=== PATIENT | male | born 1945 | race Caucasian/White ===

== ENCOUNTER 2018-08-18 02:50 | Inpatient (IN) | payer MEDICARE, BC ==
[~2018-08-18] VITALS: Ht 170.2 cm; Wt 80.4 kg
[2018-08-18] MEDS ORDERED: METHYL SALICYLATE/MENTHOL TOPICAL OINTMENT 29GM TUBE. TP PRN (03:00)
[2018-08-18] MEDS ORDERED: MAGNESIUM HYDROXIDE 2,400 MG/30 ML ORAL.SUSP. PO PRN (03:00)
[2018-08-18] MEDS ORDERED: MAG HYDROX/AL HYDROX/SIMETH 30 ML ORAL.SUSP PO PRN (03:00)
[2018-08-18] MEDS ORDERED: UBID100C26 PO (03:14)
[2018-08-18] MEDS ORDERED: SERT25TA PO (03:14)
[2018-08-18] MEDS ORDERED: HYDR-2867 PO (03:14)
[2018-08-18] MEDS ORDERED: TORS20TA2 PO (03:14)
[2018-08-18] MEDS ORDERED: ASPI-630 PO (03:14)
[2018-08-18] MEDS ORDERED: CYAN10005 PO (03:14)
[2018-08-18] MEDS ORDERED: DONE5TAB7 PO (03:14)
[2018-08-18] MEDS ORDERED: EPLE25TA4 PO (03:14)
[2018-08-18] MEDS ORDERED: WARF2TAB96 PO (03:14)
[2018-08-18] MEDS ORDERED: WARF3TAB50 PO (03:14)
[2018-08-18] MEDS ORDERED: POTA8TAB45 PO (03:14)
[2018-08-18] MEDS ORDERED: LEVO150T5 PO (03:14)
[2018-08-18] MEDS ORDERED: CARV25TA2 PO (03:14)
[2018-08-18] MEDS ORDERED: ATOR10TA60 PO (03:14)
[2018-08-18] MEDS ORDERED: MULT1TAB52 PO (03:14)
[2018-08-18] MEDS ORDERED: OMEP20TA8 PO (03:14)
[2018-08-18] MEDS ORDERED: FENO48TA2 PO (03:14)
[2018-08-18] MEDS ORDERED: MAGN500C10 PO (03:14)
[2018-08-18 03:15] VITALS: BP 184/81
[2018-08-18] MEDS ORDERED: POTA10CA PO (03:19)
[2018-08-18 07:15] LABS: BASO # 0.1 x10^3/uL (0.0-0.2); BASO % 1 % (0-3); EOS # 0.1 x10^3/uL (0.0-0.7); EOS % 1 % (0-3); HEMATOCRIT 45.3 % (39.0-53.0); HEMOGLOBIN 15.1 g/dL (13.0-17.5); LYMPH # 1.1 x10^3/uL (1.0-4.8); LYMPH % 11 % (24-48); MEAN CORPUSCULAR HEMOGLOBIN 27 pg (25-35); MEAN CORPUSCULAR HGB CONC 33 g/dL (31-37); MEAN CORPUSCULAR VOLUME 82 fL (79-100); MONO # 0.8 x10^3/uL (0.0-1.1); MONO % 8 % (0-9); NEUT % 78 % (31-73); PLATELET COUNT 337 x10^3/uL (140-400); RED BLOOD COUNT 5.49 x10^6/uL (4.30-5.70); RED CELL DISTRIBUTION WIDTH 17.8 % (11.5-14.5); WHITE BLOOD COUNT 10.2 x10^3/uL (4.0-11.0)
[2018-08-18 07:18] LABS: ALBUMIN 4.5 g/dL (3.4-5.0); ALBUMIN/GLOBULIN RATIO 1.4 (1.0-1.7); CALCIUM 9.5 mg/dL (8.5-10.1); CREATININE 1.3 mg/dL (0.7-1.3); GFR 54.4; MAGNESIUM 2.1 mg/dL (1.8-2.4); POTASSIUM 3.9 mmol/L (3.5-5.1); TOTAL PROTEIN 7.8 g/dL (6.4-8.2)
[2018-08-18 07:38] VITALS: BP 170/85
--- NOTE | 2018-08-18 07:51 | RAD ---
CT of the head without contrast, 08/18/2018: HISTORY: Fall, head trauma, confusion There is mild cerebral atrophy. A MUSIC VIDEO PRODUCER shunt tube enters the skull in the right posterior parietal region extending through the right lateral ventricle with its tip lying in the anterior aspect of the left ventricle. The ventricles are within normal limits in size. There is no shift of the midline structures. There is no evidence of acute intracranial hemorrhage or mass effect. There is a moderate lucency posteriorly in the left occipital lobe compatible with encephalomalacia due to an old infarct. There is no mass effect in this region. There is also minimal encephalomalacia along the course of the right sided shunt tubing. IMPRESSION: 1. A MUSIC VIDEO PRODUCER shunt tube is in place with no evidence of hydrocephalus. 2. Old left occipital lobe infarct. 3. No acute intracranial abnormality is detected. PQRS Compliance Statement: One or more of the following individualized dose reduction techniques were utilized for this examination: 1. Automated exposure control 2. Adjustment of the mA and/or kV according to patient size 3. Use of iterative reconstruction technique Electronically signed by: Tomy Riley MD (08/18/2018 7:49 AM) [facility]
--- NOTE | 2018-08-18 07:54 | RAD ---
Thoracic spine, 3 views, 08/18/2014: HISTORY: Fall, pain The thoracic vertebral heights are well-maintained. There are moderate scattered marginal spurs. No fracture or subluxation is evident. A RADIO COMMUNICATION COORDINATOR shunt tube overlies the right chest. Two transvenous pacing leads extend into the right heart. Cardiac valvular prostheses are present in the mitral and aortic valve regions. There are multiple surgical clips in the lower neck in the thyroid region. IMPRESSION: 1. Degenerative change. 2. No acute bony abnormality is detected. Cervical spine, 3 views, 08/18/2018: HISTORY: Fall, pain There is moderate disc space narrowing at multiple levels with mild marginal spurring. There are degenerative changes involving scattered facet joints bilaterally. No fracture or subluxation is evident. No prevertebral soft tissue swelling is seen. IMPRESSION: 1. Moderate multilevel degenerative change. 2. No acute bony abnormality is detected. Electronically signed by: Tomy Riley MD (08/18/2018 7:52 AM) [facility]
--- NOTE | 2018-08-18 07:54 | RAD ---
Thoracic spine, 3 views, 08/18/2014: HISTORY: Fall, pain The thoracic vertebral heights are well-maintained. There are moderate scattered marginal spurs. No fracture or subluxation is evident. A DATACAP DEVELOPER shunt tube overlies the right chest. Two transvenous pacing leads extend into the right heart. Cardiac valvular prostheses are present in the mitral and aortic valve regions. There are multiple surgical clips in the lower neck in the thyroid region. IMPRESSION: 1. Degenerative change. 2. No acute bony abnormality is detected. Cervical spine, 3 views, 08/18/2018: HISTORY: Fall, pain There is moderate disc space narrowing at multiple levels with mild marginal spurring. There are degenerative changes involving scattered facet joints bilaterally. No fracture or subluxation is evident. No prevertebral soft tissue swelling is seen. IMPRESSION: 1. Moderate multilevel degenerative change. 2. No acute bony abnormality is detected. Electronically signed by: Tomy Riley MD (08/18/2018 7:52 AM) [facility]
[2018-08-18] MEDS ORDERED: CARV12.53 PO (11:13)
[2018-08-18] MEDS ORDERED: TORS20TA PO (11:18)
[2018-08-18] MEDS: ASPIRIN 81 MG TAB.CHEW PO SCH (13:18)
[2018-08-18] MEDS: PANTOPRAZOLE 40 MG TABLET. PO SCH (13:18)
[2018-08-18] MEDS: FENOFIBRATE NANOCRYSTALLIZED 48 MG TABLET PO SCH (13:18)
[2018-08-18] MEDS: LEVOTHYROXINE 150 MCG TABLET PO SCH (13:18)
[2018-08-18] MEDS: MAGNESIUM OXIDE 400 MG TABLET PO SCH (13:18)
[2018-08-18] MEDS: TORSEMIDE 20 MG TABLET. PO SCH (13:19)
[2018-08-18] MEDS: CYANOCOBALAMIN (VITAMIN B-12) 1,000 MCG TABLET. PO SCH (13:19)
[2018-08-18] MEDS: MULTIVITAMIN with MINERAL TABLET. PO SCH (13:19)
[2018-08-18] MEDS: UBIDECARENONE 50 MG CAPSULE. PO SCH (13:19)
[2018-08-18] MEDS: SERTRALINE 25 MG TABLET. PO SCH (13:19)
[2018-08-18] MEDS: hydrALAZINE 10 MG TABLET PO SCH ×2 (13:20→17:18)
[2018-08-18 16:17] VITALS: BP 126/72
[2018-08-18] MEDS: POTASSIUM CHLORIDE 10 MEQ TABLET.ER. PO SCH (17:18)
[2018-08-18] MEDS: CARVEDILOL 12.5 MG TABLET PO SCH (17:20)
[2018-08-18 17:44] LABS: THYROID STIM HORMONE (TSH) 8.036 uIU/mL (0.358-3.740)
[2018-08-18 18:08] LABS: THYROXINE 8.1 ug/dL (4.5-12.0)
[2018-08-18] MEDS: ATORVASTATIN CALCIUM 10 MG TABLET. PO SCH (20:42)
[2018-08-18] MEDS: DONEPEZIL HCL 5 MG TABLET. PO SCH (20:42)
--- NOTE | 2018-08-18 22:03 | PSYEV ---
DATE OF SERVICE: 08/18/2018 REASON FOR ADMISSION: This 73-year-old male who was admitted to [facility] from [facility] Room where he was evaluated. The patient apparently attempted to hit his with a walker, increased confusion and aggressive behaviors. HISTORY OF PRESENT ILLNESS: The patient does not remember why he was brought here. The patient states he lives in the [place]. The patient also states that he did not know that he went through [facility] and also wondering why his brought him here. The patient is staying in bed, poor eye contact, but able to hold a conversation. The patient is indifferent to surroundings. The patient denies that he has any memory problems and he was asked about the date, he said no and he was not able to give me any information, the reason why he was brought here. The patient also reluctant to talk about if any problems. Staff also reports he fell this morning, has a history of falls. The patient is also having difficulty with sleep, angry outbursts. The patient apparently had 2 falls including head trauma in 2016 and also in 01/2018, apparently he has hydrocephalus and has AV shunt. PAST PSYCHIATRIC HISTORY: The patient unable to give any information at this time with regard to past treatment. The patient denies that he had any problems. The patient has been on Aricept 5 mg at night and Zoloft 25 mg at night. The patient has a diagnosis of dementia. PAST MEDICAL HISTORY: The patient unable to give much information. The patient's current medication includes aspirin 81 mg daily, Lipitor 10 mg daily, carvedilol 12.5 mg b.i.d., hydralazine 10 mg daily, levothyroxine 150 mcg daily, Prilosec 20 mg daily, potassium chloride 10 mEq daily. The patient is being treated with the above medications for high blood pressure, hypertension, hypothyroidism and hyperlipidemia. 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 States he has been for 51 years. The patient also states he has 3 daughters. The patient stays very active with the jehovah's witness and also starts [employer] school. The patient also has 5 siblings. FAMILY HISTORY: None available. ALCOHOL AND SUBSTANCE ABUSE: The patient denies. He will drink once a month socially. The patient did not smoke. FAMILY HISTORY: None available. MENTAL STATUS EXAMINATION: The patient appeared to be of his stated age, tall, well built, weighs 191 pounds. The patient is able to respond to questions, able to make eye contact, briefly, but is disoriented. His speech was clear, monotone, decreased rate and rhythm. There was no speech impediment. Affect and mood showed, he is withdrawn indifferent, claims to have no problems and wonders why he was brought here. The patient slow recollection of recent events. The patient is disoriented to time, place and person. His memory is impaired for recent events. His remote memory is fairly intact. The patient currently denies of any visual or auditory hallucinations. Even, the patient denies that he is being threatening his with his walker. The patient slept fairly good. Appetite is fair. The patient's mental status is not testable at this time. The patient's judgment is impaired, lacks insight. STRENGTH: Fairly in good health, able to communicate, supportive . WEAKNESSES: The patient currently has significant short term memory deficits, has no awareness of his problems. The patient also is having problems with behaviors being aggressive, threatening towards his prior to coming here. INITIAL TREATMENT AND PLAN: The patient will be involved in the program including individual therapy, group therapy and activity therapy. The patient had lab work including CBC, chem profile, urinalysis, which were all within normal range except glucose level was 131. The patient's PT was 27.2 and INR 2.9. The patient had a cervical spine x-ray that showed moderate multilevel degenerative changes. No acute bone abnormality detected. CT scan showed the FUNERAL HOME DIRECTOR shunt tube is in place with no evidence of hydrocephalus, old left occipital lobe infarct, no acute intracranial abnormality. CURRENT MEDICATIONS: Include Inspra 25 mg at night, Aricept 5 mg at night, Lipitor 10 mg at night, carvedilol 12.5 mg b.i.d., potassium chloride 30 mEq b.i.d., warfarin p.r.n., hydralazine 10 mg t.i.d., torsemide 20 mg daily, Zoloft 25 mg daily, Protonix 40 mg daily, levothyroxine 150 mcg daily, aspirin 81 mg daily, B12 1000 mcg daily. The patient will be started on Zyprexa 2.5 mg q. 2 hours p.r.n. The patient will be seen by the psychiatrist daily and also obtain more information from family and the primary care doctor. LENGTH OF STAY: 7-10 days. ADDENDUM DIAGNOSES: AXIS I: 1. Vascular dementia with behavior problems and delusions. 2. Impulse control disorder, unspecified. 3. Mood disorder, unspecified. AXIS II: None. AXIS III: Hypothyroidism, hypertension, atrial fibrillation, gastroesophageal reflux disease. Also history of most likely hydrocephalus secondary to head trauma and AV shunt. JEAN KEMP MD DR: MARK/enmanuel JOB#: [id number] / [id number]
[2018-08-18 22:08] LABS: HEMOGLOBIN A1C 5.7 % (4.8-5.6)
--- NOTE | 2018-08-18 23:39 | CONS ---
DATE OF CONSULTATION: 08/18/2018 REASON FOR CONSULTATION: Medical management. HISTORY OF PRESENT ILLNESS: The patient is a 73-year-old male patient who was evaluated at [facility] and was admitted to [facility] on account of being very aggressive, attempted to hit his with a walker, has increased confusion and aggression, unsafe for the patient to remain at home with his . He has been more confused and has not been sleeping and was admitted for inpatient psychiatric stabilization. PAST MEDICAL HISTORY: Significant for hypertension, hyperlipidemia, congestive heart failure. He also is known to have depression and hypothyroidism. He also has artificial valve, cardiac valves as well as what seemed to be ventriculoperitoneal shunt. ALLERGIES: HE IS ALLERGIC TO IODINATED CONTRAST, ORAL AND IV. MEDICATIONS: He is currently on following medications: Aricept 5 mg once a day, warfarin sodium 2 mg every Tuesday and and 3 mg 5 times per week. He is on fenofibrate 48 mg once a day, atorvastatin calcium 10 mg at bedtime, hydralazine 10 mg 3 times a day with meals, carvedilol 12.5 mg twice a day, eplerenone 25 mg at bedtime. He is on aspirin 81 mg once a day, sertraline 25 mg daily, potassium chloride 8 mEq twice a day and potassium chloride 30 mEq twice a day with meals, torsemide 20 mg twice a day, magnesium oxide 500 mg daily, omeprazole 20 mg once a day, levothyroxine sodium 150 mcg once a day, cyanocobalamin 1000 mcg tablet once a day, multivitamin 1 tablet once a day, CoQ10 100 mg once a day with lunch. FAMILY HISTORY: Unremarkable. SOCIAL HISTORY: Apparently, he is and lives with his . He does not smoke, drink alcohol, or use any recreational drugs. PHYSICAL EXAMINATION: GENERAL: When I spoke to him this afternoon, he could not remember doing anything with his and he was very surprised that was the reason that he was admitted to this place. He denied any other complaints. When I examined him, he was sitting comfortably, eating his dinner, in no apparent respiratory distress. VITAL SIGNS: His heart rate was 66, blood pressure 126/72, temperature was 97.5, respiratory rate was 16, and oxygen saturation was 94%. The rest of clinical exam is unremarkable. LABORATORY DATA: Showed a white cell count of 10,200, hemoglobin 15, hematocrit 45, MCV 82, and platelet count of 337,000 with normal manual differential. His serum sodium was 138, potassium 3.9, chloride 100, bicarbonate 23, anion gap of 15, BUN 19, creatinine 1.3, estimated GFR was 54 mL per minute. His glucose was 131, calcium was 9.5, magnesium was 2.1. Total bilirubin, AST, ALT, alkaline phosphatase were normal. Total protein was 7.8, albumin was 4.5. His white cell count was 10,200, hemoglobin 15, hematocrit 45, MCV 82, and platelet count of 337,000. His prothrombin time was 27.2 and INR of 2.9. IMPRESSION AND PLAN: So in summary, this is a 73-year-old male patient who was admitted on account of being aggressive, attempted to hit his with a walker, was noted to have increased confusion and insomnia. It was felt that the patient is unsafe to remain at home with his . His past medical history significant for hypertension, hyperlipidemia, congestive heart failure. He is also known to have hypothyroidism. He was he has a couple of valve replaced and he also has a ventriculoperitoneal shunt. The plan is obviously to get some more information about what kind of valves, especially if he has mitral valve replaced as he needs to have his INR kept higher between 2.5-3, other than that the patient seemed to be fairly stable medically. Thank you, Dr. Seaman for allowing me to participate in the care of this patient. ANURAG BENEDICT MD DR: BEAN/enmanuel JOB#: [id number] / [id number]
--- NOTE | 2018-08-19 05:45 | EKG ---
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
[2018-08-19] MEDS: LEVOTHYROXINE 150 MCG TABLET PO SCH (05:55)
[2018-08-19 05:57] VITALS: BP 100/54
[2018-08-19] MEDS: PANTOPRAZOLE 40 MG TABLET. PO SCH ×2 (08:03→11:08)
[2018-08-19] MEDS: ASPIRIN 81 MG TAB.CHEW PO SCH ×2 (08:04→11:09)
[2018-08-19] MEDS: CARVEDILOL 12.5 MG TABLET PO SCH ×3 (08:04→17:00)
[2018-08-19] MEDS: hydrALAZINE 10 MG TABLET PO SCH ×4 (08:04→17:00)
[2018-08-19] MEDS: POTASSIUM CHLORIDE 10 MEQ TABLET.ER. PO SCH ×4 (08:05→17:00)
[2018-08-19] MEDS: MAGNESIUM OXIDE 400 MG TABLET PO SCH ×2 (08:05→11:10)
[2018-08-19] MEDS: MULTIVITAMIN with MINERAL TABLET. PO SCH ×2 (08:05→11:10)
[2018-08-19] MEDS: FENOFIBRATE NANOCRYSTALLIZED 48 MG TABLET PO SCH ×2 (08:06→11:12)
[2018-08-19] MEDS: CYANOCOBALAMIN (VITAMIN B-12) 1,000 MCG TABLET. PO SCH ×2 (08:06→11:12)
[2018-08-19] MEDS: SERTRALINE 25 MG TABLET. PO SCH ×2 (08:06→10:51)
[2018-08-19] MEDS ORDERED: IV DEXTROSE 5% 1,000 ML IV SCH (11:00)
[2018-08-19] MEDS: TORSEMIDE 20 MG TABLET. PO SCH (11:09)
[2018-08-19] MEDS: UBIDECARENONE 50 MG CAPSULE. PO SCH (12:00)
[2018-08-19 16:32] VITALS: BP 160/80
[2018-08-19] MEDS: WARFARIN 2 MG TABLET. PO SCH (17:13)
--- NOTE | 2018-08-19 18:07 | PN ---
DATE: 08/19/2018 SUBJECTIVE: The patient was seen today, met with the staff, chart reviewed. The patient is currently refusing to have conversation. States he wants to be left alone because he is dying. The patient also refused to open his eyes and make eye contact. The patient states no hopes, nobody can help him. He wants to be left alone. OBSERVATION: VITAL SIGNS: Temperature 97.8, blood pressure 100/54, pulse 67, respiration 18, O2 sat 95%. GENERAL: Slept about 8 hours last night. The patient is not participating in any activities. The patient's lab reviewed. His platelet count was 337. Hemoglobin 5.7. TSH 8.036. The patient had a CT scan head, which did not show anything except for SUPERVISOR CORDUROY CUTTING shunt, old left occipital lobe infarct, otherwise, no acute intracranial abnormality. MEDICATIONS: The patient's current medications include Aricept 5 mg at night, Zoloft 25 mg daily, olanzapine 2.5 mg q. 2 hours p.r.n. The patient is also on Lipitor, Coreg, potassium chloride, warfarin, hydralazine, torsemide, Protonix, and levothyroxine. ASSESSMENT: AXIS I: 1. Vascular dementia with behavior problems and delusions. 2. Impulse control disorder, unspecified. 3. Mood disorder, unspecified. AXIS II: None. AXIS III: Hypothyroidism, hypertension, atrial fibrillation, gastroesophageal reflux disease. The patient also has AV shunt for hydrocephalus. PLAN: To continue with the treatment. JEAN KEMP MD DR: MARK/enmanuel JOB#: [id number] / [id number]
[2018-08-19] MEDS: DONEPEZIL HCL 5 MG TABLET. PO SCH (20:48)
[2018-08-19] MEDS: ATORVASTATIN CALCIUM 10 MG TABLET. PO SCH (20:48)
[2018-08-19] MEDS: EPLERENONE 25 MG PO SCH (20:49)
[2018-08-20] MEDS: LEVOTHYROXINE 150 MCG TABLET PO SCH (05:02)
[2018-08-20 05:34] VITALS: BP 169/71
[2018-08-20] MEDS: CARVEDILOL 12.5 MG TABLET PO SCH ×4 (08:00→17:24)
[2018-08-20] MEDS: POTASSIUM CHLORIDE 10 MEQ TABLET.ER. PO SCH ×3 (08:00→17:23)
[2018-08-20] MEDS: ASPIRIN 81 MG TAB.CHEW PO SCH ×2 (08:00→08:16)
[2018-08-20] MEDS: hydrALAZINE 10 MG TABLET PO SCH ×4 (08:00→17:23)
[2018-08-20] MEDS: PANTOPRAZOLE 40 MG TABLET. PO SCH ×2 (08:15→12:27)
[2018-08-20] MEDS: MAGNESIUM OXIDE 400 MG TABLET PO SCH ×2 (08:17→09:00)
[2018-08-20] MEDS: CYANOCOBALAMIN (VITAMIN B-12) 1,000 MCG TABLET. PO SCH ×2 (08:17→09:00)
[2018-08-20] MEDS: TORSEMIDE 20 MG TABLET. PO SCH ×3 (08:17→13:04)
[2018-08-20] MEDS: MULTIVITAMIN with MINERAL TABLET. PO SCH ×2 (08:17→09:00)
[2018-08-20] MEDS: SERTRALINE 25 MG TABLET. PO SCH ×3 (08:18→13:04)
[2018-08-20] MEDS: FENOFIBRATE NANOCRYSTALLIZED 48 MG TABLET PO SCH ×2 (08:19→09:00)
[2018-08-20] MEDS: LORazepam 0.5 MG TABLET PO PRN (08:19)
[2018-08-20 11:53] LABS: BASO # 0.1 x10^3/uL (0.0-0.2); BASO % 1 % (0-3); EOS # 0.2 x10^3/uL (0.0-0.7); EOS % 3 % (0-3); HEMATOCRIT 43.6 % (39.0-53.0); HEMOGLOBIN 14.4 g/dL (13.0-17.5); LYMPH # 0.8 x10^3/uL (1.0-4.8); LYMPH % 10 % (24-48); MEAN CORPUSCULAR HEMOGLOBIN 28 pg (25-35); MEAN CORPUSCULAR HGB CONC 33 g/dL (31-37); MEAN CORPUSCULAR VOLUME 84 fL (79-100); MONO # 0.9 x10^3/uL (0.0-1.1); MONO % 12 % (0-9); NEUT # 5.6 x10^3uL (1.8-7.7); NEUT % 73 % (31-73); PLATELET COUNT 268 x10^3/uL (140-400); RED BLOOD COUNT 5.19 x10^6/uL (4.30-5.70); RED CELL DISTRIBUTION WIDTH 18.1 % (11.5-14.5); WHITE BLOOD COUNT 7.7 x10^3/uL (4.0-11.0)
[2018-08-20 11:54] LABS: CALCIUM 9.2 mg/dL (8.5-10.1); CREATININE 1.2 mg/dL (0.7-1.3); GFR 59.7; MAGNESIUM 2.1 mg/dL (1.8-2.4); POTASSIUM 3.9 mmol/L (3.5-5.1)
[2018-08-20] MEDS: UBIDECARENONE 50 MG CAPSULE. PO SCH (12:00)
[2018-08-20 12:01] LABS: BACTERIA,URINE 0 /HPF (0-FEW); BILIRUBIN,URINE NEG (NEG); CLARITY,URINE CLEAR; COLOR,URINE YELLOW; GLUCOSE,URINE NEG (NEG); NITRITE,URINE NEG (NEG); RBC,URINE 0 /HPF (0-2); SQUAMOUS EPITHELIAL CELL,UR OCC /LPF; UROBILINOGEN,URINE 0.2 mg/dL (0.2 mg/dL); WBC,URINE 0 /HPF (0-4)
[2018-08-20] MEDS: WARFARIN 2 MG TABLET. PO SCH (13:51)
[2018-08-20 15:26] VITALS: BP 136/72
[2018-08-20] MEDS: EPLERENONE 25 MG PO SCH (20:26)
[2018-08-20] MEDS: ATORVASTATIN CALCIUM 10 MG TABLET. PO SCH (20:26)
[2018-08-20] MEDS: DONEPEZIL HCL 5 MG TABLET. PO SCH (20:26)
[2018-08-20] MEDS: OLANZapine 5 MG TABLET PO SCH (20:26)
--- NOTE | 2018-08-20 22:44 | PDOC ---
Exam Note: Mikel Note: Please also refer to the separate dictated note~for this date of service dictated separately. Discussed the patient with Nursing staff reviewed the chart.~Reviewed interim history and current functioning. Reviewed vital signs,~ Labs/ Radiology~and current medications noted below. Continue current treatment with the changes noted in the dictated addendum note Assessment: Vital Signs: Vital Signs Date Time Temp Pulse Resp B/P (MAP) Pulse Ox O2 Delivery O2 Flow Rate FiO2 08/20/18 17:23 74 136/72 08/20/18 15:26 97.9 16 94 08/19/18 16:32 Room Air I&O Intake and Output 08/20/18 07:00 Intake Total 400 ml Balance 400 ml Intake Oral 400 ml # Voids 1 Labs: Laboratory Tests Test 08/20/18 07:10 08/20/18 08:04 08/20/18 11:20 08/20/18 11:39 Glucose (Fingerstick) 65 mg/dL (70-99) L 83 mg/dL (70-99) White Blood Count 7.7 x10^3/uL (4.0-11.0) Red Blood Count 5.19 x10^6/uL (4.30-5.70) Hemoglobin 14.4 g/dL (13.0-17.5) Hematocrit 43.6 % (39.0-53.0) Mean Corpuscular Volume 84 fL (79-100) Mean Corpuscular Hemoglobin 28 pg (25-35) Mean Corpuscular Hemoglobin Concent 33 g/dL (31-37) Red Cell Distribution Width 18.1 % (11.5-14.5) H Platelet Count 268 x10^3/uL (140-400) Neutrophils (%) (Auto) 73 % (31-73) Lymphocytes (%) (Auto) 10 % (24-48) L Monocytes (%) (Auto) 12 % (0-9) H Eosinophils (%) (Auto) 3 % (0-3) Basophils (%) (Auto) 1 % (0-3) Neutrophils # (Auto) 5.6 x10^3uL (1.8-7.7) Lymphocytes # (Auto) 0.8 x10^3/uL (1.0-4.8) L Monocytes # (Auto) 0.9 x10^3/uL (0.0-1.1) Eosinophils # (Auto) 0.2 x10^3/uL (0.0-0.7) Basophils # (Auto) 0.1 x10^3/uL (0.0-0.2) Prothrombin Time 23.7 SEC (9.4-11.4) H Prothrombin Time INR 2.5 (0.9-1.1) H Sodium Level 140 mmol/L (136-145) Potassium Level 3.9 mmol/L (3.5-5.1) Chloride Level 100 mmol/L (98-107) Carbon Dioxide Level 28 mmol/L (21-32) Anion Gap 12 (6-14) Blood Urea Nitrogen 22 mg/dL (8-26) Creatinine 1.2 mg/dL (0.7-1.3) Estimated GFR (Cockcroft-Gault) 59.7 Glucose Level 115 mg/dL (70-99) H Calcium Level 9.2 mg/dL (8.5-10.1) Magnesium Level 2.1 mg/dL (1.8-2.4) Urine Collection Type Unknown Urine Color Yellow Urine Clarity Clear Urine pH 5.5 Urine Specific [place] <=1.005 Urine Protein Neg (NEG-TRACE) Urine Glucose (UA) Neg mg/dL (NEG) Urine Ketones (Stick) Neg mg/dL (NEG) Urine Blood Neg (NEG) Urine Nitrite Neg (NEG) Urine Bilirubin Neg (NEG) Urine Urobilinogen Dipstick 0.2 mg/dL (0.2 mg/dL) Urine Leukocyte Esterase Neg (NEG) Urine RBC 0 /HPF (0-2) Urine WBC 0 /HPF (0-4) Urine Squamous Epithelial Cells Occ /LPF Urine Transitional Epithelial Cells Occ /LPF Urine Bacteria 0 /HPF (0-FEW) Urine Mucus Slight /LPF Test 08/20/18 16:38 08/20/18 19:12 Glucose (Fingerstick) 104 mg/dL (70-99) H 121 mg/dL (70-99) H Current Medications: Meds: Current Medications Acetaminophen (Tylenol) 650 mg PRN Q6HRS PRN PO PAIN / TEMP; Start 08/18/18 at 03:00 Multi-Ingredient Ointment (Analgesic [place]) 1 bernadette PRN QID PRN TP MUSCLE PAIN; Start 08/18/18 at 03:00 Al Hydroxide/Mg Hydroxide (Mylanta Plus Xs) 15 ml PRN AFTMEALHC PRN PO DYSPEPSIA; Start 08/18/18 at 03:00 Magnesium Hydroxide (Milk Of Magnesia) 2,400 mg PRN QHS PRN PO CONSTIPATION; Start 08/18/18 at 03:00 Olanzapine (ZyPREXA ZYDIS) 5 mg PRN Q2HR PRN PO AGITATION; Start 08/18/18 at 10 :30; Stop 08/18/18 at 10:33; Status DC Olanzapine (ZyPREXA ZYDIS) 2.5 mg PRN Q2HR PRN PO AGITATION Last administered on 08/20/18 09:23; Start 08/18/18 at 10:45 Cyanocobalamin (Vitamin B-12) 1,000 mcg DAILY PO Last administered on 13:19; Start 08/18/18 at 11:30 Epleronone (Inspra) 25 mg HS PO Last administered on 08/20/18 20:26; Start at 21:00 Aspirin (Children'S Aspirin) 81 mg DAILYWBKFT PO Last administered on 13:18; Start 08/18/18 at 11:30 Atorvastatin Calcium (Lipitor) 10 mg QHS PO Last administered on 08/20/18 20: 26; Start 08/18/18 at 21:00 Donepezil HCl (Aricept) 5 mg QHS PO Last administered on 08/20/18at 20:26; Start 08/18/18 at 21:00 Fenofibrate (Tricor) 48 mg DAILY PO Last administered on 08/18/18 13:18; Start 08/18/18 at 11:30 Hydralazine HCl (Apresoline) 10 mg TIDWMEALS PO Last administered on 08/20/18 17:23; Start 08/18/18 at 12:00 Levothyroxine Sodium (Synthroid) 150 mcg DAILY06 PO Last administered on 05:02; Start 08/18/18 at 11:30; Stop 08/20/18 at 12:27; Status DC Magnesium Oxide (Magnesium Oxide) 400 mg DAILY PO Last administered on at 13:18; Start 08/18/18 at 11:30 Multivitamins/ Calcium (Thera-M Plus) 1 tab DAILY PO Last administered on 13:19; Start 08/18/18 at 11:30 Pantoprazole Sodium (Protonix) 40 mg DAILYAC PO Last administered on 08/18/18 13:18; Start 08/18/18 at 11:30 Potassium Chloride (Klor-Con) 30 meq BIDWMEALS PO Last administered on at 17:23; Start 08/18/18 at 17:00 Sertraline HCl (Zoloft) 25 mg DAILY PO Last administered on 08/20/18 13:04; Start 08/18/18 at 11:30 Torsemide (Demadex) 20 mg DAILY PO Last administered on 08/20/18 13:04; Start 08/18/18 at 11:30 Warfarin Sodium (Coumadin Per Physician) 1 each PRN DAILY PRN MC SEE COMMENTS; Start 08/18/18 at 12:00 Carvedilol (Coreg) 12.5 mg BIDWMEALS PO Last administered on 08/20/18 13:04; Start 08/18/18 at 17:00 Coenzyme Q10 (Coenzyme Q10) 300 mg DAILYWLUN PO Last administered on 08/18/18 13:19; Start 08/18/18 at 12:00 Dextrose 1,000 ml @ 80 mls/hr [id number] IV ; Start 08/19/18 at 11:00; Status Cancel Warfarin Sodium (Coumadin) 2 mg DAILY16 PO Last administered on 08/20/18 13:51 ; Start 08/19/18 at 17:00 Olanzapine (ZyPREXA ZYDIS) 5 mg 1X ONCE PO Last administered on 08/19/18at 21: 36; Start 08/19/18 at 22:00; Stop 08/19/18 at 22:01; Status DC Lorazepam (Ativan) 0.5 mg PRN Q6HRS PRN PO ANXIETY / AGITATION Last administered on 08/20/18at 08:19; Start 08/19/18 at 21:30 Levothyroxine Sodium (Synthroid) 175 mcg DAILY06 PO ; Start 08/21/18 at 06:00 Olanzapine (ZyPREXA) 5 mg HS PO Last administered on 08/20/18at 20:26; Start at 21:00 Active Scripts Active Reported Demadex (Torsemide) 20 Mg Tablet 20 Mg PO [id number] Carvedilol 12.5 Mg Tablet 12.5 Mg PO BID Potassium Chloride 10 Meq Capsule.er 30 PO BIDWMEALS Warfarin Sodium 3 Mg Tablet 3 Mg PO 5XWEEK Warfarin Sodium 2 Mg Tablet 2 Mg PO QMTH Multivitamins (Multivitamin) 1 Each Tablet 1 Tab PO DAILY Atorvastatin Calcium 10 Mg Tablet 10 Mg PO QHS K-Tab ER (Potassium Chloride) 8 Meq Tablet.er Unknown Dose PO BIDWMEALS Omeprazole 20 Mg Tablet.dr 20 Mg PO DAILY Magnesium (Magnesium Oxide) 500 Mg Capsule 500 Mg PO DAILY Levothyroxine Sodium 150 Mcg Tablet 150 Mcg PO DAILYAC Hydralazine Hcl 10 Mg Tablet 10 Mg PO TIDWMEALS Fenofibrate (Fenofibrate Nanocrystallized) 48 Mg Tablet 48 Mg PO DAILY Eplerenone 25 Mg Tablet 25 Mg PO HS Aspirin 81 Mg Tab.chew 81 Mg PO DAILY Vitamin B-12 (Cyanocobalamin (Vitamin B-12)) 1,000 Mcg Tablet 1,000 Mcg PO DAILY Coq-10 (Ubidecarenone) 100 Mg Capsule 300 Mg PO DAILYWLUN Donepezil Hcl 5 Mg Tablet 5 Mg PO HS Zoloft (Sertraline Hcl) 25 Mg Tablet 25 Mg PO DAILY I have reviewed the current psychotropics carefully including drug interactions. Risk benefit ratio favors no change other than as noted in my dictated progress note. MARYJO LAYTON MD Aug 20, 2018 22:44
--- NOTE | 2018-08-20 23:59 | PN ---
DATE: 08/20/2018 SUBJECTIVE: The patient was seen today, met with the staff, chart reviewed and also the medical records from the [facility]. The patient was treated for altered mental status, coronary artery disease, dyslipidemia, hyperlipidemia, hypertension, memory loss, stroke, thyroid cancer, thyroid disease, and a CT scan of the head without contrast showed development of acute- and subacute-appearing subdural hemorrhage along the left cerebral convexity as well as acute-appearing right cerebral convexity subdural hemorrhage. Previous exam showed bilateral low-density small subdural collections. The patient is also on warfarin. Staff reports the patient continues to behavior problems and sometimes on the floor, refusing to get up and also constantly making statements that he is going to . The patient also received Zyprexa p.r.n. because of the agitation. OBSERVATION: VITAL SIGNS: Temperature 97.6, blood pressure 164/71, pulse 76, respirations 20, O2 sat 100%. Slept about 4 hours last night. MEDICATIONS: The patient's current medications include Aricept 5 mg at night, Zoloft 25 mg daily, olanzapine 2.5 mg q. 2 hours p.r.n. The patient continues to have confusion, agitation, and also poor impulse control. ASSESSMENT: 1. Vascular dementia with behavior problems and delusions. 2. Impulse control disorder, unspecified. 3. Mood disorder, unspecified. 4. History of subdural hematoma in the past and also has AV shunt. PLAN: To continue with the current treatment. JEAN KEMP MD DR: MARK/enmanuel JOB#: [id number] / [id number]
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
[2018-08-21] MEDS: LEVOTHYROXINE 175 MCG TABLET PO SCH (05:09)
[2018-08-21 06:31] VITALS: BP 132/65
[2018-08-21] MEDS: PANTOPRAZOLE 40 MG TABLET. PO SCH ×2 (07:47→10:32)
[2018-08-21] MEDS: CARVEDILOL 12.5 MG TABLET PO SCH ×3 (07:48→16:01)
[2018-08-21] MEDS: hydrALAZINE 10 MG TABLET PO SCH ×4 (07:48→16:01)
[2018-08-21] MEDS: ASPIRIN 81 MG TAB.CHEW PO SCH ×2 (07:48→10:32)
[2018-08-21] MEDS: SERTRALINE 25 MG TABLET. PO SCH ×2 (08:16→10:34)
[2018-08-21] MEDS: MULTIVITAMIN with MINERAL TABLET. PO SCH ×2 (08:16→10:34)
[2018-08-21] MEDS: POTASSIUM CHLORIDE 10 MEQ TABLET.ER. PO SCH ×3 (08:16→16:02)
[2018-08-21] MEDS: CYANOCOBALAMIN (VITAMIN B-12) 1,000 MCG TABLET. PO SCH ×2 (08:16→10:34)
[2018-08-21] MEDS: TORSEMIDE 20 MG TABLET. PO SCH ×2 (08:16→10:33)
[2018-08-21] MEDS: MAGNESIUM OXIDE 400 MG TABLET PO SCH ×2 (08:16→10:34)
[2018-08-21] MEDS: FENOFIBRATE NANOCRYSTALLIZED 48 MG TABLET PO SCH ×2 (08:17→10:34)
[2018-08-21] MEDS: LORazepam 0.5 MG TABLET PO PRN (09:02)
[2018-08-21] MEDS: UBIDECARENONE 50 MG CAPSULE. PO SCH (12:53)
[2018-08-21] MEDS: WARFARIN 2 MG TABLET. PO SCH (16:00)
[2018-08-21 17:41] VITALS: BP 116/58
[2018-08-21] MEDS: OLANZapine 5 MG TABLET PO SCH (21:14)
[2018-08-21] MEDS: ATORVASTATIN CALCIUM 10 MG TABLET. PO SCH (21:14)
[2018-08-21] MEDS: DONEPEZIL HCL 5 MG TABLET. PO SCH (21:14)
[2018-08-21] MEDS: EPLERENONE 25 MG PO SCH (21:16)
--- NOTE | 2018-08-21 22:19 | PDOC ---
Exam Note: Mikel Note: "This is a late entry for 08/20/18. The template note for 08/20/18 was completed in error and should be disregarded." Please also refer to the separate dictated note~for this date of service dictated separately.~Patient seen individually. Discussed the patient with Nursing staff reviewed the chart.~ Reviewed interim history and current functioning. Reviewed vital signs,~Labs/ Radiology~and current medications noted below. Continue current treatment with the changes noted in the dictated addendum note Assessment: Vital Signs: Vital Signs Date Time Temp Pulse Resp B/P (MAP) Pulse Ox O2 Delivery O2 Flow Rate FiO2 08/21/18 17:41 98.4 70 20 116/58 (77) 97 08/19/18 16:32 Room Air I&O Intake and Output 08/21/18 07:00 Intake Total 1000 ml Balance 1000 ml Intake Oral 1000 ml Labs: Laboratory Tests Test 08/21/18 07:20 08/21/18 07:34 08/21/18 12:02 08/21/18 17:19 Prothrombin Time 27.2 SEC (9.4-11.4) H Prothrombin Time INR 2.9 (0.9-1.1) H Glucose (Fingerstick) 92 mg/dL (70-99) 95 mg/dL (70-99) 99 mg/dL (70-99) Test 08/21/18 19:28 Glucose (Fingerstick) 124 mg/dL (70-99) H Current Medications: Meds: Current Medications Acetaminophen (Tylenol) 650 mg PRN Q6HRS PRN PO PAIN / TEMP; Start 08/18/18 at 03:00 Multi-Ingredient Ointment (Analgesic [place]) 1 bernadette PRN QID PRN TP MUSCLE PAIN; Start 08/18/18 at 03:00 Al Hydroxide/Mg Hydroxide (Mylanta Plus Xs) 15 ml PRN AFTMEALHC PRN PO DYSPEPSIA; Start 08/18/18 at 03:00 Magnesium Hydroxide (Milk Of Magnesia) 2,400 mg PRN QHS PRN PO CONSTIPATION; Start 08/18/18 at 03:00 Olanzapine (ZyPREXA ZYDIS) 5 mg PRN Q2HR PRN PO AGITATION; Start 08/18/18 at 10 :30; Stop 08/18/18 at 10:33; Status DC Olanzapine (ZyPREXA ZYDIS) 2.5 mg PRN Q2HR PRN PO AGITATION Last administered on 08/21/18 09:02; Start 08/18/18 at 10:45 Cyanocobalamin (Vitamin B-12) 1,000 mcg DAILY PO Last administered on 10:34; Start 08/18/18 at 11:30 Epleronone (Inspra) 25 mg HS PO Last administered on 08/21/18 21:16; Start at 21:00 Aspirin (Children'S Aspirin) 81 mg DAILYWBKFT PO Last administered on 10:32; Start 08/18/18 at 11:30 Atorvastatin Calcium (Lipitor) 10 mg QHS PO Last administered on 08/21/18 21: 14; Start 08/18/18 at 21:00 Donepezil HCl (Aricept) 5 mg QHS PO Last administered on 08/21/18 21:14; Start 08/18/18 at 21:00 Fenofibrate (Tricor) 48 mg DAILY PO Last administered on 08/21/18 10:34; Start 08/18/18 at 11:30 Hydralazine HCl (Apresoline) 10 mg TIDWMEALS PO Last administered on 08/21/18 16:01; Start 08/18/18 at 12:00 Levothyroxine Sodium (Synthroid) 150 mcg DAILY06 PO Last administered on 05:02; Start 08/18/18 at 11:30; Stop 08/20/18 at 12:27; Status DC Magnesium Oxide (Magnesium Oxide) 400 mg DAILY PO Last administered on 10:34; Start 08/18/18 at 11:30 Multivitamins/ Calcium (Thera-M Plus) 1 tab DAILY PO Last administered on 10:34; Start 08/18/18 at 11:30 Pantoprazole Sodium (Protonix) 40 mg DAILYAC PO Last administered on 08/21/18 10:32; Start 08/18/18 at 11:30 Potassium Chloride (Klor-Con) 30 meq BIDWMEALS PO Last administered on 16:02; Start 08/18/18 at 17:00 Sertraline HCl (Zoloft) 25 mg DAILY PO Last administered on 08/21/18 10:34; Start 08/18/18 at 11:30 Torsemide (Demadex) 20 mg DAILY PO Last administered on 08/21/18 10:33; Start 08/18/18 at 11:30 Warfarin Sodium (Coumadin Per Physician) 1 each PRN DAILY PRN MC SEE COMMENTS; Start 08/18/18 at 12:00 Carvedilol (Coreg) 12.5 mg BIDWMEALS PO Last administered on 08/21/18at 16:01; Start 08/18/18 at 17:00 Coenzyme Q10 (Coenzyme Q10) 300 mg DAILYWLUN PO Last administered on 08/18/18 13:19; Start 08/18/18 at 12:00 Dextrose 1,000 ml @ 80 mls/hr [id number] IV ; Start 08/19/18 at 11:00; Status Cancel Warfarin Sodium (Coumadin) 2 mg DAILY16 PO Last administered on 08/21/18at 16:00 ; Start 08/19/18 at 17:00 Olanzapine (ZyPREXA ZYDIS) 5 mg 1X ONCE PO Last administered on 08/19/18at 21: 36; Start 08/19/18 at 22:00; Stop 08/19/18 at 22:01; Status DC Lorazepam (Ativan) 0.5 mg PRN Q6HRS PRN PO ANXIETY / AGITATION Last administered on 08/21/18 09:02; Start 08/19/18 at 21:30 Levothyroxine Sodium (Synthroid) 175 mcg DAILY06 PO Last administered on 05:09; Start 08/21/18 at 06:00 Olanzapine (ZyPREXA) 5 mg HS PO Last administered on 08/21/18at 21:14; Start at 21:00 Active Scripts Active Reported Demadex (Torsemide) 20 Mg Tablet 20 Mg PO BID92 Carvedilol 12.5 Mg Tablet 12.5 Mg PO BID Potassium Chloride 10 Meq Capsule.er 30 PO BIDWMEALS Warfarin Sodium 3 Mg Tablet 3 Mg PO 5XWEEK Warfarin Sodium 2 Mg Tablet 2 Mg PO QMTH Multivitamins (Multivitamin) 1 Each Tablet 1 Tab PO DAILY Atorvastatin Calcium 10 Mg Tablet 10 Mg PO QHS K-Tab ER (Potassium Chloride) 8 Meq Tablet.er Unknown Dose PO BIDWMEALS Omeprazole 20 Mg Tablet.dr 20 Mg PO DAILY Magnesium (Magnesium Oxide) 500 Mg Capsule 500 Mg PO DAILY Levothyroxine Sodium 150 Mcg Tablet 150 Mcg PO DAILYAC Hydralazine Hcl 10 Mg Tablet 10 Mg PO TIDWMEALS Fenofibrate (Fenofibrate Nanocrystallized) 48 Mg Tablet 48 Mg PO DAILY Eplerenone 25 Mg Tablet 25 Mg PO HS Aspirin 81 Mg Tab.chew 81 Mg PO DAILY Vitamin B-12 (Cyanocobalamin (Vitamin B-12)) 1,000 Mcg Tablet 1,000 Mcg PO DAILY Coq-10 (Ubidecarenone) 100 Mg Capsule 300 Mg PO DAILYWLUN Donepezil Hcl 5 Mg Tablet 5 Mg PO HS Zoloft (Sertraline Hcl) 25 Mg Tablet 25 Mg PO DAILY I have reviewed the current psychotropics carefully including drug interactions. Risk benefit ratio favors no change other than as noted in my dictated progress note. MARYJO LAYTON MD Aug 21, 2018 22:19
--- NOTE | 2018-08-21 23:07 | PDOC ---
Exam Note: Mikel Note: Please also refer to the separate dictated note~for this date of service dictated separately. Discussed the patient with Nursing staff reviewed the chart.~Reviewed interim history and current functioning. Reviewed vital signs,~ Labs/ Radiology~and current medications noted below. Continue current treatment with the changes noted in the dictated addendum note Assessment: Vital Signs: Vital Signs Date Time Temp Pulse Resp B/P (MAP) Pulse Ox O2 Delivery O2 Flow Rate FiO2 08/21/18 17:41 98.4 70 20 116/58 (77) 97 08/19/18 16:32 Room Air I&O Intake and Output 08/21/18 07:00 Intake Total 1000 ml Balance 1000 ml Intake Oral 1000 ml Labs: Laboratory Tests Test 08/21/18 07:20 08/21/18 07:34 08/21/18 12:02 08/21/18 17:19 Prothrombin Time 27.2 SEC (9.4-11.4) H Prothrombin Time INR 2.9 (0.9-1.1) H Glucose (Fingerstick) 92 mg/dL (70-99) 95 mg/dL (70-99) 99 mg/dL (70-99) Test 08/21/18 19:28 Glucose (Fingerstick) 124 mg/dL (70-99) H Current Medications: Meds: Current Medications Acetaminophen (Tylenol) 650 mg PRN Q6HRS PRN PO PAIN / TEMP; Start 08/18/18 at 03:00 Multi-Ingredient Ointment (Analgesic [place]) 1 bernadette PRN QID PRN TP MUSCLE PAIN; Start 08/18/18 at 03:00 Al Hydroxide/Mg Hydroxide (Mylanta Plus Xs) 15 ml PRN AFTMEALHC PRN PO DYSPEPSIA; Start 08/18/18 at 03:00 Magnesium Hydroxide (Milk Of Magnesia) 2,400 mg PRN QHS PRN PO CONSTIPATION; Start 08/18/18 at 03:00 Olanzapine (ZyPREXA ZYDIS) 5 mg PRN Q2HR PRN PO AGITATION; Start 08/18/18 at 10 :30; Stop 08/18/18 at 10:33; Status DC Olanzapine (ZyPREXA ZYDIS) 2.5 mg PRN Q2HR PRN PO AGITATION Last administered on 08/21/18at 09:02; Start 08/18/18 at 10:45 Cyanocobalamin (Vitamin B-12) 1,000 mcg DAILY PO Last administered on 10:34; Start 08/18/18 at 11:30 Epleronone (Inspra) 25 mg HS PO Last administered on 08/21/18 21:16; Start at 21:00 Aspirin (Children'S Aspirin) 81 mg DAILYWBKFT PO Last administered on 10:32; Start 08/18/18 at 11:30 Atorvastatin Calcium (Lipitor) 10 mg QHS PO Last administered on 08/21/18 21: 14; Start 08/18/18 at 21:00 Donepezil HCl (Aricept) 5 mg QHS PO Last administered on 08/21/18 21:14; Start 08/18/18 at 21:00 Fenofibrate (Tricor) 48 mg DAILY PO Last administered on 08/21/18 10:34; Start 08/18/18 at 11:30 Hydralazine HCl (Apresoline) 10 mg TIDWMEALS PO Last administered on 08/21/18 16:01; Start 08/18/18 at 12:00 Levothyroxine Sodium (Synthroid) 150 mcg DAILY06 PO Last administered on 05:02; Start 08/18/18 at 11:30; Stop 08/20/18 at 12:27; Status DC Magnesium Oxide (Magnesium Oxide) 400 mg DAILY PO Last administered on 10:34; Start 08/18/18 at 11:30 Multivitamins/ Calcium (Thera-M Plus) 1 tab DAILY PO Last administered on 10:34; Start 08/18/18 at 11:30 Pantoprazole Sodium (Protonix) 40 mg DAILYAC PO Last administered on 08/21/18 10:32; Start 08/18/18 at 11:30 Potassium Chloride (Klor-Con) 30 meq BIDWMEALS PO Last administered on 16:02; Start 08/18/18 at 17:00 Sertraline HCl (Zoloft) 25 mg DAILY PO Last administered on 08/21/18 10:34; Start 08/18/18 at 11:30 Torsemide (Demadex) 20 mg DAILY PO Last administered on 08/21/18at 10:33; Start 08/18/18 at 11:30 Warfarin Sodium (Coumadin Per Physician) 1 each PRN DAILY PRN MC SEE COMMENTS; Start 08/18/18 at 12:00 Carvedilol (Coreg) 12.5 mg BIDWMEALS PO Last administered on 08/21/18at 16:01; Start 08/18/18 at 17:00 Coenzyme Q10 (Coenzyme Q10) 300 mg DAILYWLUN PO Last administered on 08/18/18at 13:19; Start 08/18/18 at 12:00 Dextrose 1,000 ml @ 80 mls/hr [id number] IV ; Start 08/19/18 at 11:00; Status Cancel Warfarin Sodium (Coumadin) 2 mg DAILY16 PO Last administered on 08/21/18at 16:00 ; Start 08/19/18 at 17:00 Olanzapine (ZyPREXA ZYDIS) 5 mg 1X ONCE PO Last administered on 08/19/18at 21: 36; Start 08/19/18 at 22:00; Stop 08/19/18 at 22:01; Status DC Lorazepam (Ativan) 0.5 mg PRN Q6HRS PRN PO ANXIETY / AGITATION Last administered on 08/21/18 09:02; Start 08/19/18 at 21:30 Levothyroxine Sodium (Synthroid) 175 mcg DAILY06 PO Last administered on 05:09; Start 08/21/18 at 06:00 Olanzapine (ZyPREXA) 5 mg HS PO Last administered on 08/21/18at 21:14; Start at 21:00 Active Scripts Active Reported Demadex (Torsemide) 20 Mg Tablet 20 Mg PO BID92 Carvedilol 12.5 Mg Tablet 12.5 Mg PO BID Potassium Chloride 10 Meq Capsule.er 30 PO BIDWMEALS Warfarin Sodium 3 Mg Tablet 3 Mg PO 5XWEEK Warfarin Sodium 2 Mg Tablet 2 Mg PO QMTH Multivitamins (Multivitamin) 1 Each Tablet 1 Tab PO DAILY Atorvastatin Calcium 10 Mg Tablet 10 Mg PO QHS K-Tab ER (Potassium Chloride) 8 Meq Tablet.er Unknown Dose PO BIDWMEALS Omeprazole 20 Mg Tablet.dr 20 Mg PO DAILY Magnesium (Magnesium Oxide) 500 Mg Capsule 500 Mg PO DAILY Levothyroxine Sodium 150 Mcg Tablet 150 Mcg PO DAILYAC Hydralazine Hcl 10 Mg Tablet 10 Mg PO TIDWMEALS Fenofibrate (Fenofibrate Nanocrystallized) 48 Mg Tablet 48 Mg PO DAILY Eplerenone 25 Mg Tablet 25 Mg PO HS Aspirin 81 Mg Tab.chew 81 Mg PO DAILY Vitamin B-12 (Cyanocobalamin (Vitamin B-12)) 1,000 Mcg Tablet 1,000 Mcg PO DAILY Coq-10 (Ubidecarenone) 100 Mg Capsule 300 Mg PO DAILYWLUN Donepezil Hcl 5 Mg Tablet 5 Mg PO HS Zoloft (Sertraline Hcl) 25 Mg Tablet 25 Mg PO DAILY I have reviewed the current psychotropics carefully including drug interactions. Risk benefit ratio favors no change other than as noted in my dictated progress note. MARYJO LAYTON MD Aug 21, 2018 23:07
[2018-08-22] MEDS: LEVOTHYROXINE 175 MCG TABLET PO SCH (06:18)
[2018-08-22 06:31] VITALS: BP 152/75
[2018-08-22] MEDS: TORSEMIDE 20 MG TABLET. PO SCH (07:33)
[2018-08-22] MEDS: POTASSIUM CHLORIDE 10 MEQ TABLET.ER. PO SCH ×2 (07:33→15:44)
[2018-08-22] MEDS: CYANOCOBALAMIN (VITAMIN B-12) 1,000 MCG TABLET. PO SCH (07:34)
[2018-08-22] MEDS: MULTIVITAMIN with MINERAL TABLET. PO SCH (07:34)
[2018-08-22] MEDS: CARVEDILOL 12.5 MG TABLET PO SCH ×2 (07:34→15:46)
[2018-08-22] MEDS: SERTRALINE 25 MG TABLET. PO SCH (07:34)
[2018-08-22] MEDS: ASPIRIN 81 MG TAB.CHEW PO SCH (07:34)
[2018-08-22] MEDS: PANTOPRAZOLE 40 MG TABLET. PO SCH (07:34)
[2018-08-22] MEDS: MAGNESIUM OXIDE 400 MG TABLET PO SCH (07:34)
[2018-08-22] MEDS: hydrALAZINE 10 MG TABLET PO SCH ×3 (07:34→15:45)
[2018-08-22] MEDS: FENOFIBRATE NANOCRYSTALLIZED 48 MG TABLET PO SCH (07:35)
[2018-08-22] MEDS: UBIDECARENONE 50 MG CAPSULE. PO SCH (10:59)
[2018-08-22] MEDS: WARFARIN 2 MG TABLET. PO SCH (15:44)
[2018-08-22 16:31] VITALS: BP 111/71
[2018-08-22] MEDS: DONEPEZIL HCL 5 MG TABLET. PO SCH (21:00)
[2018-08-22] MEDS: ATORVASTATIN CALCIUM 10 MG TABLET. PO SCH (21:00)
[2018-08-22] MEDS: OLANZapine 5 MG TABLET PO SCH (21:00)
[2018-08-22] MEDS: EPLERENONE 25 MG PO SCH (21:37)
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
--- NOTE | 2018-08-22 23:00 | PDOC ---
Exam Note: Mikel Note: Please also refer to the separate dictated note~for this date of service dictated separately.~Patient seen individually. Discussed the patient with Nursing staff reviewed the chart.~Reviewed interim history and current functioning. Reviewed vital signs,~Labs/ Radiology~and current medications noted below. Continue current treatment with the changes noted in the dictated addendum note Assessment: Vital Signs: Vital Signs Date Time Temp Pulse Resp B/P (MAP) Pulse Ox O2 Delivery O2 Flow Rate FiO2 08/22/18 16:31 98.0 77 18 111/71 (84) 96 Room Air I&O Intake and Output 08/22/18 07:00 Intake Total 580 ml Balance 580 ml Intake Oral 580 ml Labs: Laboratory Tests Test 08/22/18 07:03 08/22/18 07:08 Prothrombin Time 20.8 SEC (9.4-11.4) H Prothrombin Time INR 2.2 (0.9-1.1) H Glucose (Fingerstick) 90 mg/dL (70-99) Current Medications: Meds: Current Medications Acetaminophen (Tylenol) 650 mg PRN Q6HRS PRN PO PAIN / TEMP; Start 08/18/18 at 03:00 Multi-Ingredient Ointment (Analgesic [place]) 1 bernadette PRN QID PRN TP MUSCLE PAIN; Start 08/18/18 at 03:00 Al Hydroxide/Mg Hydroxide (Mylanta Plus Xs) 15 ml PRN AFTMEALHC PRN PO DYSPEPSIA; Start 08/18/18 at 03:00 Magnesium Hydroxide (Milk Of Magnesia) 2,400 mg PRN QHS PRN PO CONSTIPATION; Start 08/18/18 at 03:00 Olanzapine (ZyPREXA ZYDIS) 5 mg PRN Q2HR PRN PO AGITATION; Start 08/18/18 at 10 :30; Stop 08/18/18 at 10:33; Status DC Olanzapine (ZyPREXA ZYDIS) 2.5 mg PRN Q2HR PRN PO AGITATION Last administered on 08/22/18at 13:14; Start 08/18/18 at 10:45 Cyanocobalamin (Vitamin B-12) 1,000 mcg DAILY PO Last administered on at 07:34; Start 08/18/18 at 11:30 Epleronone (Inspra) 25 mg HS PO Last administered on 08/22/18 21:37; Start at 21:00 Aspirin (Children'S Aspirin) 81 mg DAILYWBKFT PO Last administered on 07:34; Start 08/18/18 at 11:30 Atorvastatin Calcium (Lipitor) 10 mg QHS PO Last administered on 08/22/18 21: 00; Start 08/18/18 at 21:00 Donepezil HCl (Aricept) 5 mg QHS PO Last administered on 08/22/18 21:00; Start 08/18/18 at 21:00 Fenofibrate (Tricor) 48 mg DAILY PO Last administered on 08/22/18 07:35; Start 08/18/18 at 11:30 Hydralazine HCl (Apresoline) 10 mg TIDWMEALS PO Last administered on 08/22/18 15:45; Start 08/18/18 at 12:00 Levothyroxine Sodium (Synthroid) 150 mcg DAILY06 PO Last administered on 05:02; Start 08/18/18 at 11:30; Stop 08/20/18 at 12:27; Status DC Magnesium Oxide (Magnesium Oxide) 400 mg DAILY PO Last administered on 07:34; Start 08/18/18 at 11:30 Multivitamins/ Calcium (Thera-M Plus) 1 tab DAILY PO Last administered on 07:34; Start 08/18/18 at 11:30 Pantoprazole Sodium (Protonix) 40 mg DAILYAC PO Last administered on 08/22/18 07:34; Start 08/18/18 at 11:30 Potassium Chloride (Klor-Con) 30 meq BIDWMEALS PO Last administered on 15:44; Start 08/18/18 at 17:00 Sertraline HCl (Zoloft) 25 mg DAILY PO Last administered on 08/22/18 07:34; Start 08/18/18 at 11:30; Stop 08/22/18 at 18:56; Status DC Torsemide (Demadex) 20 mg DAILY PO Last administered on 08/22/18 07:33; Start 08/18/18 at 11:30 Warfarin Sodium (Coumadin Per Physician) 1 each PRN DAILY PRN MC SEE COMMENTS; Start 08/18/18 at 12:00; Stop 08/22/18 at 18:30; Status DC Carvedilol (Coreg) 12.5 mg BIDWMEALS PO Last administered on 08/22/18at 15:46; Start 08/18/18 at 17:00 Coenzyme Q10 (Coenzyme Q10) 300 mg DAILYWLUN PO Last administered on 08/22/18at 10:59; Start 08/18/18 at 12:00 Dextrose 1,000 ml @ 80 mls/hr [id number] IV ; Start 08/19/18 at 11:00; Status Cancel Warfarin Sodium (Coumadin) 2 mg DAILY16 PO Last administered on 08/22/18at 15:44 ; Start 08/19/18 at 17:00; Stop 08/22/18 at 19:09; Status DC Olanzapine (ZyPREXA ZYDIS) 5 mg 1X ONCE PO Last administered on 08/19/18at 21: 36; Start 08/19/18 at 22:00; Stop 08/19/18 at 22:01; Status DC Lorazepam (Ativan) 0.5 mg PRN Q6HRS PRN PO ANXIETY / AGITATION Last administered on 08/21/18at 09:02; Start 08/19/18 at 21:30 Levothyroxine Sodium (Synthroid) 175 mcg DAILY06 PO Last administered on at 06:18; Start 08/21/18 at 06:00 Olanzapine (ZyPREXA) 5 mg HS PO Last administered on 08/22/18at 21:00; Start at 21:00 Warfarin Sodium (Coumadin Per Pharmacy) 1 each PRN DAILY PRN SEE COMMENTS; Start 08/22/18 at 18:30 Sertraline HCl (Zoloft) 50 mg DAILY PO ; Start 08/23/18 at 09:00 Active Scripts Active Reported Demadex (Torsemide) 20 Mg Tablet 20 Mg PO BID92 Carvedilol 12.5 Mg Tablet 12.5 Mg PO BID Potassium Chloride 10 Meq Capsule.er 30 PO BIDWMEALS Warfarin Sodium 3 Mg Tablet 3 Mg PO 5XWEEK Warfarin Sodium 2 Mg Tablet 2 Mg PO QMTH Multivitamins (Multivitamin) 1 Each Tablet 1 Tab PO DAILY Atorvastatin Calcium 10 Mg Tablet 10 Mg PO QHS K-Tab ER (Potassium Chloride) 8 Meq Tablet.er Unknown Dose PO BIDWMEALS Omeprazole 20 Mg Tablet.dr 20 Mg PO DAILY Magnesium (Magnesium Oxide) 500 Mg Capsule 500 Mg PO DAILY Levothyroxine Sodium 150 Mcg Tablet 150 Mcg PO DAILYAC Hydralazine Hcl 10 Mg Tablet 10 Mg PO TIDWMEALS Fenofibrate (Fenofibrate Nanocrystallized) 48 Mg Tablet 48 Mg PO DAILY Eplerenone 25 Mg Tablet 25 Mg PO HS Aspirin 81 Mg Tab.chew 81 Mg PO DAILY Vitamin B-12 (Cyanocobalamin (Vitamin B-12)) 1,000 Mcg Tablet 1,000 Mcg PO DAILY Coq-10 (Ubidecarenone) 100 Mg Capsule 300 Mg PO DAILYWLUN Donepezil Hcl 5 Mg Tablet 5 Mg PO HS Zoloft (Sertraline Hcl) 25 Mg Tablet 25 Mg PO DAILY I have reviewed the current psychotropics carefully including drug interactions. Risk benefit ratio favors no change other than as noted in my dictated progress note. MARYJO LAYTON MD Aug 22, 2018 23:00
[2018-08-23] MEDS: ASPIRIN 81 MG TAB.CHEW PO SCH (06:10)
[2018-08-23] MEDS: CARVEDILOL 12.5 MG TABLET PO SCH ×2 (06:10→16:36)
[2018-08-23] MEDS: MULTIVITAMIN with MINERAL TABLET. PO SCH (06:10)
[2018-08-23] MEDS: POTASSIUM CHLORIDE 10 MEQ TABLET.ER. PO SCH ×2 (06:10→16:22)
[2018-08-23] MEDS: TORSEMIDE 20 MG TABLET. PO SCH (06:10)
[2018-08-23] MEDS: PANTOPRAZOLE 40 MG TABLET. PO SCH (06:10)
[2018-08-23] MEDS: LEVOTHYROXINE 175 MCG TABLET PO SCH (06:11)
[2018-08-23] MEDS: CYANOCOBALAMIN (VITAMIN B-12) 1,000 MCG TABLET. PO SCH (06:11)
[2018-08-23] MEDS: hydrALAZINE 10 MG TABLET PO SCH ×3 (06:11→16:23)
[2018-08-23] MEDS: SERTRALINE 50 MG TABLET. PO SCH (06:13)
[2018-08-23] MEDS: FENOFIBRATE NANOCRYSTALLIZED 48 MG TABLET PO SCH (06:13)
[2018-08-23] MEDS: MAGNESIUM OXIDE 400 MG TABLET PO SCH (06:13)
[2018-08-23 06:18] VITALS: BP 115/80
[2018-08-23] MEDS: UBIDECARENONE 50 MG CAPSULE. PO SCH (13:03)
[2018-08-23] MEDS ORDERED: WARFARIN 3 MG TABLET. PO ONE (16:00)
[2018-08-23 16:44] VITALS: BP 143/87
[2018-08-23] MEDS: OLANZapine 5 MG TABLET PO SCH (21:00)
--- NOTE | 2018-08-23 22:54 | PDOC ---
Exam Note: Mikel Note: Please also refer to the separate dictated note~for this date of service dictated separately.~Patient seen individually. Discussed the patient with Nursing staff reviewed the chart.~Reviewed interim history and current functioning. Reviewed vital signs,~Labs/ Radiology~and current medications noted below. Continue current treatment with the changes noted in the dictated addendum note Assessment: Vital Signs: Vital Signs Date Time Temp Pulse Resp B/P (MAP) Pulse Ox O2 Delivery O2 Flow Rate FiO2 08/23/18 16:44 98.6 69 21 143/87 (105) 96 08/22/18 16:31 Room Air I&O Intake and Output 08/23/18 07:00 Intake Total 1320 ml Balance 1320 ml Intake Oral 1320 ml Labs: Laboratory Tests Test 08/23/18 07:17 08/23/18 09:16 Glucose (Fingerstick) 113 mg/dL (70-99) H Prothrombin Time 20.2 SEC (9.4-11.4) H Prothrombin Time INR 2.1 (0.9-1.1) H Current Medications: Meds: Current Medications Acetaminophen (Tylenol) 650 mg PRN Q6HRS PRN PO PAIN / TEMP; Start 08/18/18 at 03:00 Multi-Ingredient Ointment (Analgesic [place]) 1 bernadette PRN QID PRN TP MUSCLE PAIN; Start 08/18/18 at 03:00 Al Hydroxide/Mg Hydroxide (Mylanta Plus Xs) 15 ml PRN AFTMEALHC PRN PO DYSPEPSIA; Start 08/18/18 at 03:00 Magnesium Hydroxide (Milk Of Magnesia) 2,400 mg PRN QHS PRN PO CONSTIPATION; Start 08/18/18 at 03:00 Olanzapine (ZyPREXA ZYDIS) 5 mg PRN Q2HR PRN PO AGITATION; Start 08/18/18 at 10 :30; Stop 08/18/18 at 10:33; Status DC Olanzapine (ZyPREXA ZYDIS) 2.5 mg PRN Q2HR PRN PO AGITATION Last administered on 08/22/18at 13:14; Start 08/18/18 at 10:45 Cyanocobalamin (Vitamin B-12) 1,000 mcg DAILY PO Last administered on at 06:11; Start 08/18/18 at 11:30 Epleronone (Inspra) 25 mg HS PO Last administered on 08/22/18 21:37; Start at 21:00 Aspirin (Children'S Aspirin) 81 mg DAILYWBKFT PO Last administered on 06:10; Start 08/18/18 at 11:30 Atorvastatin Calcium (Lipitor) 10 mg QHS PO Last administered on 08/22/18 21: 00; Start 08/18/18 at 21:00 Donepezil HCl (Aricept) 5 mg QHS PO Last administered on 08/22/18 21:00; Start 08/18/18 at 21:00 Fenofibrate (Tricor) 48 mg DAILY PO Last administered on 08/23/18 06:13; Start 08/18/18 at 11:30 Hydralazine HCl (Apresoline) 10 mg TIDWMEALS PO Last administered on 08/23/18 16:23; Start 08/18/18 at 12:00 Levothyroxine Sodium (Synthroid) 150 mcg DAILY06 PO Last administered on 05:02; Start 08/18/18 at 11:30; Stop 08/20/18 at 12:27; Status DC Magnesium Oxide (Magnesium Oxide) 400 mg DAILY PO Last administered on 06:13; Start 08/18/18 at 11:30 Multivitamins/ Calcium (Thera-M Plus) 1 tab DAILY PO Last administered on 06:10; Start 08/18/18 at 11:30 Pantoprazole Sodium (Protonix) 40 mg DAILYAC PO Last administered on 08/23/18 06:10; Start 08/18/18 at 11:30 Potassium Chloride (Klor-Con) 30 meq BIDWMEALS PO Last administered on 16:22; Start 08/18/18 at 17:00 Sertraline HCl (Zoloft) 25 mg DAILY PO Last administered on 08/22/18 07:34; Start 08/18/18 at 11:30; Stop 08/22/18 at 18:56; Status DC Torsemide (Demadex) 20 mg DAILY PO Last administered on 08/23/18 06:10; Start 08/18/18 at 11:30 Warfarin Sodium (Coumadin Per Physician) 1 each PRN DAILY PRN MC SEE COMMENTS; Start 08/18/18 at 12:00; Stop 08/22/18 at 18:30; Status DC Carvedilol (Coreg) 12.5 mg BIDWMEALS PO Last administered on 08/23/18 16:36; Start 08/18/18 at 17:00 Coenzyme Q10 (Coenzyme Q10) 300 mg DAILYWLUN PO Last administered on 08/23/18 13:03; Start 08/18/18 at 12:00 Dextrose 1,000 ml @ 80 mls/hr [id number] IV ; Start 08/19/18 at 11:00; Status Cancel Warfarin Sodium (Coumadin) 2 mg DAILY16 PO Last administered on 08/22/18 15:44 ; Start 08/19/18 at 17:00; Stop 08/22/18 at 19:09; Status DC Olanzapine (ZyPREXA ZYDIS) 5 mg 1X ONCE PO Last administered on 08/19/18 21: 36; Start 08/19/18 at 22:00; Stop 08/19/18 at 22:01; Status DC Lorazepam (Ativan) 0.5 mg PRN Q6HRS PRN PO ANXIETY / AGITATION Last administered on 08/21/18 09:02; Start 08/19/18 at 21:30 Levothyroxine Sodium (Synthroid) 175 mcg DAILY06 PO Last administered on 06:11; Start 08/21/18 at 06:00 Olanzapine (ZyPREXA) 5 mg HS PO Last administered on 08/22/18 21:00; Start at 21:00 Warfarin Sodium (Coumadin Per Pharmacy) 1 each PRN DAILY PRN MC SEE COMMENTS Last administered on 08/23/18 12:45; Start 08/22/18 at 18:30 Sertraline HCl (Zoloft) 50 mg DAILY PO Last administered on 08/23/18 06:13; Start 08/23/18 at 09:00 Warfarin Sodium (Coumadin) 3 mg 1X WARF ONCE PO Last administered on 16:36; Start 08/23/18 at 16:00; Stop 08/23/18 at 16:02; Status DC Active Scripts Active Reported Demadex (Torsemide) 20 Mg Tablet 20 Mg PO BID92 Carvedilol 12.5 Mg Tablet 12.5 Mg PO BID Potassium Chloride 10 Meq Capsule.er 30 PO BIDWMEALS Warfarin Sodium 3 Mg Tablet 3 Mg PO 5XWEEK Warfarin Sodium 2 Mg Tablet 2 Mg PO QMTH Multivitamins (Multivitamin) 1 Each Tablet 1 Tab PO DAILY Atorvastatin Calcium 10 Mg Tablet 10 Mg PO QHS K-Tab ER (Potassium Chloride) 8 Meq Tablet.er Unknown Dose PO BIDWMEALS Omeprazole 20 Mg Tablet.dr 20 Mg PO DAILY Magnesium (Magnesium Oxide) 500 Mg Capsule 500 Mg PO DAILY Levothyroxine Sodium 150 Mcg Tablet 150 Mcg PO DAILYAC Hydralazine Hcl 10 Mg Tablet 10 Mg PO TIDWMEALS Fenofibrate (Fenofibrate Nanocrystallized) 48 Mg Tablet 48 Mg PO DAILY Eplerenone 25 Mg Tablet 25 Mg PO HS Aspirin 81 Mg Tab.chew 81 Mg PO DAILY Vitamin B-12 (Cyanocobalamin (Vitamin B-12)) 1,000 Mcg Tablet 1,000 Mcg PO DAILY Coq-10 (Ubidecarenone) 100 Mg Capsule 300 Mg PO DAILYWLUN Donepezil Hcl 5 Mg Tablet 5 Mg PO HS Zoloft (Sertraline Hcl) 25 Mg Tablet 25 Mg PO DAILY I have reviewed the current psychotropics carefully including drug interactions. Risk benefit ratio favors no change other than as noted in my dictated progress note. Diagnosis: Problems: (1) Anxiety disorder (2) Dementia, vascular, with depression (3) Dementia, vascular, with delusions (4) Impulse control disorder MARYJO LAYTON MD Aug 23, 2018 22:54
--- NOTE | 2018-08-23 23:31 | PN ---
DATE: 08/22/2018 This late entry for 08/22/2018 covers elements not covered in my initial note. SUBJECTIVE: I met with the patient in the evening. Discussed with nursing staff. I have also reviewed about 40-50 pages of records from [facility] where the patient's cortical blindness and vascular events, which have affected his overall cognition and memory functions. Reviewed with nursing staff about the family's questions about the patient's further treatment plans. I will be contacting the family in the next day or so to discuss this once I have completed the entire review of the records from and had further assessment of his functioning here on the unit. The patient remains somewhat anxious, restless, delusional "I am dying." He was persistent about this individually as I met with him. He slept 6-1/2 hours previous night, but a little bit less anxious. REVIEW OF SYSTEMS: Ambulation impaired. No CV, , pulmonary, eye, ENT system symptoms on review. MENTAL STATUS EXAM: Oriented to himself and situation. Speech has some latency, low in volume, coherent, abstraction fair, computation impaired, language function intact, attention span short. Mood and affect somewhat withdrawn. LABORATORY DATA: Reviewed. IMPRESSION: Major depressive disorder, recurrent major neurocognitive disorder, vascular early with depression, delusions; anxiety disorder, unspecified. PLAN: Increase Zoloft from 25 mg a day to 50 mg a day. Maintain rest of the psychotropics including Aricept and Zyprexa, though I would like to minimize the usage of Zyprexa. May consider Depakote as a mood stabilizer. MAN Roma LAYTON MD DR: SONDRA/enmanuel JOB#: [id number] / [id number]
[2018-08-24] MEDS: EPLERENONE 25 MG PO SCH ×2 (02:16→20:33)
[2018-08-24] MEDS: DONEPEZIL HCL 5 MG TABLET. PO SCH ×2 (02:17→20:31)
[2018-08-24] MEDS: ATORVASTATIN CALCIUM 10 MG TABLET. PO SCH ×2 (02:18→20:31)
[2018-08-24] MEDS: LEVOTHYROXINE 175 MCG TABLET PO SCH (06:00)
[2018-08-24 06:18] VITALS: BP 133/76
[2018-08-24] MEDS: SERTRALINE 50 MG TABLET. PO SCH (08:31)
[2018-08-24] MEDS: ASPIRIN 81 MG TAB.CHEW PO SCH (08:31)
[2018-08-24] MEDS: PANTOPRAZOLE 40 MG TABLET. PO SCH (08:31)
[2018-08-24] MEDS: TORSEMIDE 20 MG TABLET. PO SCH (08:31)
[2018-08-24] MEDS: MAGNESIUM OXIDE 400 MG TABLET PO SCH (08:31)
[2018-08-24] MEDS: MULTIVITAMIN with MINERAL TABLET. PO SCH (08:31)
[2018-08-24] MEDS: CYANOCOBALAMIN (VITAMIN B-12) 1,000 MCG TABLET. PO SCH (08:31)
[2018-08-24] MEDS: POTASSIUM CHLORIDE 10 MEQ TABLET.ER. PO SCH ×2 (08:32→16:30)
[2018-08-24] MEDS: hydrALAZINE 10 MG TABLET PO SCH ×3 (08:32→16:31)
[2018-08-24] MEDS: FENOFIBRATE NANOCRYSTALLIZED 48 MG TABLET PO SCH (08:33)
[2018-08-24] MEDS: CARVEDILOL 12.5 MG TABLET PO SCH ×2 (08:33→16:31)
[2018-08-24] MEDS: UBIDECARENONE 50 MG CAPSULE. PO SCH (11:54)
[2018-08-24] MEDS ORDERED: WARFARIN 3 MG TABLET. PO ONE (16:00)
[2018-08-24 16:07] VITALS: BP 141/78
[2018-08-24] MEDS: OLANZapine 5 MG TABLET PO SCH (20:31)
--- NOTE | 2018-08-24 22:39 | PDOC ---
Exam Note: Mikel Note: Please also refer to the separate dictated note~for this date of service dictated separately.~Patient seen individually. Discussed the patient with Nursing staff reviewed the chart.~Reviewed interim history and current functioning. Reviewed vital signs,~Labs/ Radiology~and current medications noted below. Continue current treatment with the changes noted in the dictated addendum note Assessment: Vital Signs: Vital Signs Date Time Temp Pulse Resp B/P (MAP) Pulse Ox O2 Delivery O2 Flow Rate FiO2 08/24/18 16:31 64 141/78 08/24/18 16:07 97.6 18 98 Room Air I&O Intake and Output 08/24/18 07:00 Intake Total 1200 ml Balance 1200 ml Intake Oral 1200 ml Labs: Laboratory Tests Test 08/24/18 07:39 08/24/18 09:24 Glucose (Fingerstick) 92 mg/dL (70-99) Prothrombin Time 22.3 SEC (9.4-11.4) H Prothrombin Time INR 2.3 (0.9-1.1) H Current Medications: Meds: Current Medications Acetaminophen (Tylenol) 650 mg PRN Q6HRS PRN PO PAIN / TEMP; Start 08/18/18 at 03:00 Multi-Ingredient Ointment (Analgesic [place]) 1 bernadette PRN QID PRN TP MUSCLE PAIN; Start 08/18/18 at 03:00 Al Hydroxide/Mg Hydroxide (Mylanta Plus Xs) 15 ml PRN AFTMEALHC PRN PO DYSPEPSIA; Start 08/18/18 at 03:00 Magnesium Hydroxide (Milk Of Magnesia) 2,400 mg PRN QHS PRN PO CONSTIPATION; Start 08/18/18 at 03:00 Olanzapine (ZyPREXA ZYDIS) 5 mg PRN Q2HR PRN PO AGITATION; Start 08/18/18 at 10 :30; Stop 08/18/18 at 10:33; Status DC Olanzapine (ZyPREXA ZYDIS) 2.5 mg PRN Q2HR PRN PO AGITATION Last administered on 08/22/18at 13:14; Start 08/18/18 at 10:45 Cyanocobalamin (Vitamin B-12) 1,000 mcg DAILY PO Last administered on at 08:31; Start 08/18/18 at 11:30 Epleronone (Inspra) 25 mg HS PO Last administered on 08/24/18 20:33; Start at 21:00 Aspirin (Children'S Aspirin) 81 mg DAILYWBKFT PO Last administered on 08:31; Start 08/18/18 at 11:30 Atorvastatin Calcium (Lipitor) 10 mg QHS PO Last administered on 08/24/18 20: 31; Start 08/18/18 at 21:00 Donepezil HCl (Aricept) 5 mg QHS PO Last administered on 08/24/18 20:31; Start 08/18/18 at 21:00 Fenofibrate (Tricor) 48 mg DAILY PO Last administered on 08/24/18 08:33; Start 08/18/18 at 11:30 Hydralazine HCl (Apresoline) 10 mg TIDWMEALS PO Last administered on 08/24/18 16:31; Start 08/18/18 at 12:00 Levothyroxine Sodium (Synthroid) 150 mcg DAILY06 PO Last administered on 05:02; Start 08/18/18 at 11:30; Stop 08/20/18 at 12:27; Status DC Magnesium Oxide (Magnesium Oxide) 400 mg DAILY PO Last administered on 08:31; Start 08/18/18 at 11:30 Multivitamins/ Calcium (Thera-M Plus) 1 tab DAILY PO Last administered on 08:31; Start 08/18/18 at 11:30 Pantoprazole Sodium (Protonix) 40 mg DAILYAC PO Last administered on 08/24/18 08:31; Start 08/18/18 at 11:30 Potassium Chloride (Klor-Con) 30 meq BIDWMEALS PO Last administered on 16:30; Start 08/18/18 at 17:00 Sertraline HCl (Zoloft) 25 mg DAILY PO Last administered on 08/22/18 07:34; Start 08/18/18 at 11:30; Stop 08/22/18 at 18:56; Status DC Torsemide (Demadex) 20 mg DAILY PO Last administered on 08/24/18 08:31; Start 08/18/18 at 11:30 Warfarin Sodium (Coumadin Per Physician) 1 each PRN DAILY PRN MC SEE COMMENTS; Start 08/18/18 at 12:00; Stop 08/22/18 at 18:30; Status DC Carvedilol (Coreg) 12.5 mg BIDWMEALS PO Last administered on 08/24/18 16:31; Start 08/18/18 at 17:00 Coenzyme Q10 (Coenzyme Q10) 300 mg DAILYWLUN PO Last administered on 08/24/18 11:54; Start 08/18/18 at 12:00 Dextrose 1,000 ml @ 80 mls/hr [id number] IV ; Start 08/19/18 at 11:00; Status Cancel Warfarin Sodium (Coumadin) 2 mg DAILY16 PO Last administered on 08/22/18 15:44 ; Start 08/19/18 at 17:00; Stop 08/22/18 at 19:09; Status DC Olanzapine (ZyPREXA ZYDIS) 5 mg 1X ONCE PO Last administered on 08/19/18 21: 36; Start 08/19/18 at 22:00; Stop 08/19/18 at 22:01; Status DC Lorazepam (Ativan) 0.5 mg PRN Q6HRS PRN PO ANXIETY / AGITATION Last administered on 08/21/18 09:02; Start 08/19/18 at 21:30 Levothyroxine Sodium (Synthroid) 175 mcg DAILY06 PO Last administered on 06:00; Start 08/21/18 at 06:00 Olanzapine (ZyPREXA) 5 mg HS PO Last administered on 08/24/18 20:31; Start at 21:00 Warfarin Sodium (Coumadin Per Pharmacy) 1 each PRN DAILY PRN MC SEE COMMENTS Last administered on 08/24/18 16:05; Start 08/22/18 at 18:30 Sertraline HCl (Zoloft) 50 mg DAILY PO Last administered on 08/24/18 08:31; Start 08/23/18 at 09:00 Warfarin Sodium (Coumadin) 3 mg 1X WARF ONCE PO Last administered on 16:36; Start 08/23/18 at 16:00; Stop 08/23/18 at 16:02; Status DC Warfarin Sodium (Coumadin) 3 mg 1X WARF ONCE PO Last administered on 3/21/ 19at 16:12; Start 08/24/18 at 16:00; Stop 08/24/18 at 16:03; Status DC Active Scripts Active Reported Demadex (Torsemide) 20 Mg Tablet 20 Mg PO BID92 Carvedilol 12.5 Mg Tablet 12.5 Mg PO BID Potassium Chloride 10 Meq Capsule.er 30 PO BIDWMEALS Warfarin Sodium 3 Mg Tablet 3 Mg PO 5XWEEK Warfarin Sodium 2 Mg Tablet 2 Mg PO QMTH Multivitamins (Multivitamin) 1 Each Tablet 1 Tab PO DAILY Atorvastatin Calcium 10 Mg Tablet 10 Mg PO QHS K-Tab ER (Potassium Chloride) 8 Meq Tablet.er Unknown Dose PO BIDWMEALS Omeprazole 20 Mg Tablet.dr 20 Mg PO DAILY Magnesium (Magnesium Oxide) 500 Mg Capsule 500 Mg PO DAILY Levothyroxine Sodium 150 Mcg Tablet 150 Mcg PO DAILYAC Hydralazine Hcl 10 Mg Tablet 10 Mg PO TIDWMEALS Fenofibrate (Fenofibrate Nanocrystallized) 48 Mg Tablet 48 Mg PO DAILY Eplerenone 25 Mg Tablet 25 Mg PO HS Aspirin 81 Mg Tab.chew 81 Mg PO DAILY Vitamin B-12 (Cyanocobalamin (Vitamin B-12)) 1,000 Mcg Tablet 1,000 Mcg PO DAILY Coq-10 (Ubidecarenone) 100 Mg Capsule 300 Mg PO DAILYWLUN Donepezil Hcl 5 Mg Tablet 5 Mg PO HS Zoloft (Sertraline Hcl) 25 Mg Tablet 25 Mg PO DAILY I have reviewed the current psychotropics carefully including drug interactions. Risk benefit ratio favors no change other than as noted in my dictated progress note. Diagnosis: Problems: (1) Anxiety disorder (2) Dementia, vascular, with depression (3) Dementia, vascular, with delusions (4) Impulse control disorder MARYJO LAYTON MD Aug 24, 2018 22:39
[2018-08-25] MEDS: LEVOTHYROXINE 175 MCG TABLET PO SCH (05:15)
[2018-08-25 06:23] VITALS: BP 135/70
[2018-08-25] MEDS: MAGNESIUM OXIDE 400 MG TABLET PO SCH (07:39)
[2018-08-25] MEDS: MULTIVITAMIN with MINERAL TABLET. PO SCH (07:39)
[2018-08-25] MEDS: PANTOPRAZOLE 40 MG TABLET. PO SCH (07:39)
[2018-08-25] MEDS: CYANOCOBALAMIN (VITAMIN B-12) 1,000 MCG TABLET. PO SCH (07:39)
[2018-08-25] MEDS: hydrALAZINE 10 MG TABLET PO SCH ×3 (07:40→16:45)
[2018-08-25] MEDS: ASPIRIN 81 MG TAB.CHEW PO SCH (07:40)
[2018-08-25] MEDS: SERTRALINE 50 MG TABLET. PO SCH (07:40)
[2018-08-25] MEDS: TORSEMIDE 20 MG TABLET. PO SCH (07:40)
[2018-08-25] MEDS: POTASSIUM CHLORIDE 10 MEQ TABLET.ER. PO SCH ×2 (07:40→16:41)
[2018-08-25] MEDS: CARVEDILOL 12.5 MG TABLET PO SCH ×2 (07:41→16:41)
[2018-08-25] MEDS: UBIDECARENONE 50 MG CAPSULE. PO SCH (07:42)
[2018-08-25] MEDS: FENOFIBRATE NANOCRYSTALLIZED 48 MG TABLET PO SCH (07:43)
--- NOTE | 2018-08-25 14:32 | PN ---
DATE: 08/23/2018 PSYCHIATRIC PROGRESS NOTE This late entry 08/23/2018 covers elements not covered in my initial note. SUBJECTIVE: I met with the patient in the evening at length in his room. The patient slept 6-1/4 hours. He has done better during the day, somewhat withdrawn, but not agitated. The family came to visit him. 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 No CV, , pulmonary, eyes system symptoms on review other than above. MENTAL STATUS EXAM: Oriented to himself, situation. He did not seem to remember me from a prior visit and again talked very pointedly about wanting to be discharged since he has been started on medications for his anxiety and depression. We have discussed this at each visit every day, but he does not seem to remember it when I questioned him on it. MENTAL STATUS EXAM: Oriented to himself and situation. Speech has some latency, coherent. Abstraction fair, computation impaired, language function intact, attention span short. Mood and affect still somewhat anxious to dysphoric, but improved. LABORATORY DATA: Reviewed. IMPRESSION: Major neurocognitive disorder, probably vascular with delusion, depression and anxiety disorder, unspecified. Rest is unchanged. PLAN: From a psychiatric standpoint, we will continue Aricept, Zoloft. He is also on Zyprexa 5 mg at bedtime, seems to have responded positively to this, but given the risk/benefit ratio we will try and taper and stop it in due course. No further changes for now. MAN Roma LAYTON MD DR: SONDRA/enmanuel JOB#: [id number] / [id number]
--- NOTE | 2018-08-25 14:50 | PN ---
DATE: 08/24/2018 This is a late entry 08/24/2018 covers elements not covered in my initial note. MENTAL SUBJECTIVE: I met with the patient in the evening and staffed at a treatment team meeting with the entire team along with the patient's , Kimi, and the patient's daughter attending as well. SUBJECTIVE: The patient slept 6-1/2 hours. Appetite 75%. We have completed the mini mental status examination and he scores 20/30 and I discussed this with the family. Also discussed at some length during the treatment team meeting about his diagnosis of vascular dementia given his past fall and head injury and multiple factors, which could predispose to the vascular dementia. REVIEW OF SYSTEMS: Poor vision, impaired ambulation. No CV, , pulmonary system symptoms on review. MENTAL STATUS: Oriented to himself and situation. Speech has some latency, often responses monosyllabic. Abstraction fair, computation impaired, language function intact, attention span short. Mood and affect still somewhat dysphoric. Labs reviewed. IMPRESSION: Major neurocognitive disorder, probably vascular with depression, major depressive disorder, anxiety disorder, unspecified. Rest as above. PLAN: Family questioned about how to address the patient's marked anxiety preoccupations with the fact that he may soon, some obsessiveness and we discussed distracting him to talk about positive events in his life and with his family and his contribution to this bringing back memories of past positive events. Additionally, we have increased the Zoloft to 50 mg a day. He remains on Zyprexa 5 mg at bedtime, Ativan p.r.n., Aricept 5 mg a day, though it is questionable what benefit Aricept will have. Family is looking at [facility] placement. Social service staff are coordinating his care. MAN Roma LAYTON MD DR: SONDRA/enmanuel JOB#: [id number] / [id number]
[2018-08-25] MEDS ORDERED: WARFARIN 2 MG TABLET. PO ONE (16:00)
[2018-08-25 16:12] VITALS: BP 150/94
[2018-08-25] MEDS: DONEPEZIL HCL 5 MG TABLET. PO SCH (19:21)
[2018-08-25] MEDS: OLANZapine 5 MG TABLET PO SCH (19:21)
[2018-08-25] MEDS: ATORVASTATIN CALCIUM 10 MG TABLET. PO SCH (19:21)
[2018-08-25] MEDS: EPLERENONE 25 MG PO SCH (19:22)
[2018-08-25] MEDS: LORazepam 0.5 MG TABLET PO PRN (20:15)
--- NOTE | 2018-08-25 22:47 | PDOC ---
Exam Note: Mikel Note: Please also refer to the separate dictated note~for this date of service dictated separately.~Patient seen individually. Discussed the patient with Nursing staff reviewed the chart.~Reviewed interim history and current functioning. Reviewed vital signs,~Labs/ Radiology~and current medications noted below. Continue current treatment with the changes noted in the dictated addendum note Assessment: Vital Signs: Vital Signs Date Time Temp Pulse Resp B/P (MAP) Pulse Ox O2 Delivery O2 Flow Rate FiO2 08/25/18 16:45 82 150/94 08/25/18 16:12 98.6 16 97 Room Air I&O Intake and Output 08/25/18 07:00 Intake Total 2880 ml Balance 2880 ml Intake Oral 2880 ml Labs: Laboratory Tests Test 08/25/18 07:13 08/25/18 07:32 Glucose (Fingerstick) 103 mg/dL (70-99) H Prothrombin Time 30.8 SEC (9.4-11.4) H Prothrombin Time INR 3.3 (0.9-1.1) H Current Medications: Meds: Current Medications Acetaminophen (Tylenol) 650 mg PRN Q6HRS PRN PO PAIN / TEMP; Start 08/18/18 at 03:00 Multi-Ingredient Ointment (Analgesic [place]) 1 bernadette PRN QID PRN TP MUSCLE PAIN; Start 08/18/18 at 03:00 Al Hydroxide/Mg Hydroxide (Mylanta Plus Xs) 15 ml PRN AFTMEALHC PRN PO DYSPEPSIA; Start 08/18/18 at 03:00 Magnesium Hydroxide (Milk Of Magnesia) 2,400 mg PRN QHS PRN PO CONSTIPATION; Start 08/18/18 at 03:00 Olanzapine (ZyPREXA ZYDIS) 5 mg PRN Q2HR PRN PO AGITATION; Start 08/18/18 at 10 :30; Stop 08/18/18 at 10:33; Status DC Olanzapine (ZyPREXA ZYDIS) 2.5 mg PRN Q2HR PRN PO AGITATION Last administered on 08/25/18at 21:49; Start 08/18/18 at 10:45 Cyanocobalamin (Vitamin B-12) 1,000 mcg DAILY PO Last administered on at 07:39; Start 08/18/18 at 11:30 Epleronone (Inspra) 25 mg HS PO Last administered on 08/25/18 19:22; Start at 21:00 Aspirin (Children'S Aspirin) 81 mg DAILYWBKFT PO Last administered on 07:40; Start 08/18/18 at 11:30 Atorvastatin Calcium (Lipitor) 10 mg QHS PO Last administered on 08/25/18 19: 21; Start 08/18/18 at 21:00 Donepezil HCl (Aricept) 5 mg QHS PO Last administered on 08/25/18 19:21; Start 08/18/18 at 21:00 Fenofibrate (Tricor) 48 mg DAILY PO Last administered on 08/25/18 07:43; Start 08/18/18 at 11:30 Hydralazine HCl (Apresoline) 10 mg TIDWMEALS PO Last administered on 08/25/18 16:45; Start 08/18/18 at 12:00 Levothyroxine Sodium (Synthroid) 150 mcg DAILY06 PO Last administered on 05:02; Start 08/18/18 at 11:30; Stop 08/20/18 at 12:27; Status DC Magnesium Oxide (Magnesium Oxide) 400 mg DAILY PO Last administered on 07:39; Start 08/18/18 at 11:30 Multivitamins/ Calcium (Thera-M Plus) 1 tab DAILY PO Last administered on 07:39; Start 08/18/18 at 11:30 Pantoprazole Sodium (Protonix) 40 mg DAILYAC PO Last administered on 08/25/18 07:39; Start 08/18/18 at 11:30 Potassium Chloride (Klor-Con) 30 meq BIDWMEALS PO Last administered on 16:41; Start 08/18/18 at 17:00 Sertraline HCl (Zoloft) 25 mg DAILY PO Last administered on 08/22/18 07:34; Start 08/18/18 at 11:30; Stop 08/22/18 at 18:56; Status DC Torsemide (Demadex) 20 mg DAILY PO Last administered on 08/25/18 07:40; Start 08/18/18 at 11:30 Warfarin Sodium (Coumadin Per Physician) 1 each PRN DAILY PRN MC SEE COMMENTS; Start 08/18/18 at 12:00; Stop 08/22/18 at 18:30; Status DC Carvedilol (Coreg) 12.5 mg BIDWMEALS PO Last administered on 08/25/18 16:41; Start 08/18/18 at 17:00 Coenzyme Q10 (Coenzyme Q10) 300 mg DAILYWLUN PO Last administered on 08/25/18 07:42; Start 08/18/18 at 12:00 Dextrose 1,000 ml @ 80 mls/hr [id number] IV ; Start 08/19/18 at 11:00; Status Cancel Warfarin Sodium (Coumadin) 2 mg DAILY16 PO Last administered on 08/22/18 15:44 ; Start 08/19/18 at 17:00; Stop 08/22/18 at 19:09; Status DC Olanzapine (ZyPREXA ZYDIS) 5 mg 1X ONCE PO Last administered on 08/19/18 21: 36; Start 08/19/18 at 22:00; Stop 08/19/18 at 22:01; Status DC Lorazepam (Ativan) 0.5 mg PRN Q6HRS PRN PO ANXIETY / AGITATION Last administered on 08/25/18 20:15; Start 08/19/18 at 21:30 Levothyroxine Sodium (Synthroid) 175 mcg DAILY06 PO Last administered on 05:15; Start 08/21/18 at 06:00 Olanzapine (ZyPREXA) 5 mg HS PO Last administered on 08/25/18 19:21; Start at 21:00 Warfarin Sodium (Coumadin Per Pharmacy) 1 each PRN DAILY PRN MC SEE COMMENTS Last administered on 08/25/18 13:55; Start 08/22/18 at 18:30 Sertraline HCl (Zoloft) 50 mg DAILY PO Last administered on 08/25/18 07:40; Start 08/23/18 at 09:00 Warfarin Sodium (Coumadin) 3 mg 1X WARF ONCE PO Last administered on 16:36; Start 08/23/18 at 16:00; Stop 08/23/18 at 16:02; Status DC Warfarin Sodium (Coumadin) 3 mg 1X WARF ONCE PO Last administered on 3/21/ 19at 16:12; Start 08/24/18 at 16:00; Stop 08/24/18 at 16:03; Status DC Warfarin Sodium (Coumadin) 2 mg 1X WARF ONCE PO Last administered on at 16:43; Start 08/25/18 at 16:00; Stop 08/25/18 at 16:01; Status DC Active Scripts Active Reported Demadex (Torsemide) 20 Mg Tablet 20 Mg PO [id number] Carvedilol 12.5 Mg Tablet 12.5 Mg PO BID Potassium Chloride 10 Meq Capsule.er 30 PO BIDWMEALS Warfarin Sodium 3 Mg Tablet 3 Mg PO 5XWEEK Warfarin Sodium 2 Mg Tablet 2 Mg PO QMTH Multivitamins (Multivitamin) 1 Each Tablet 1 Tab PO DAILY Atorvastatin Calcium 10 Mg Tablet 10 Mg PO QHS K-Tab ER (Potassium Chloride) 8 Meq Tablet.er Unknown Dose PO BIDWMEALS Omeprazole 20 Mg Tablet.dr 20 Mg PO DAILY Magnesium (Magnesium Oxide) 500 Mg Capsule 500 Mg PO DAILY Levothyroxine Sodium 150 Mcg Tablet 150 Mcg PO DAILYAC Hydralazine Hcl 10 Mg Tablet 10 Mg PO TIDWMEALS Fenofibrate (Fenofibrate Nanocrystallized) 48 Mg Tablet 48 Mg PO DAILY Eplerenone 25 Mg Tablet 25 Mg PO HS Aspirin 81 Mg Tab.chew 81 Mg PO DAILY Vitamin B-12 (Cyanocobalamin (Vitamin B-12)) 1,000 Mcg Tablet 1,000 Mcg PO DAILY Coq-10 (Ubidecarenone) 100 Mg Capsule 300 Mg PO DAILYWLUN Donepezil Hcl 5 Mg Tablet 5 Mg PO HS Zoloft (Sertraline Hcl) 25 Mg Tablet 25 Mg PO DAILY I have reviewed the current psychotropics carefully including drug interactions. Risk benefit ratio favors no change other than as noted in my dictated progress note. Diagnosis: Problems: (1) Anxiety disorder (2) Dementia, vascular, with depression (3) Dementia, vascular, with delusions (4) Impulse control disorder MARYJO LAYTON MD Aug 25, 2018 22:47
[2018-08-26] MEDS: LEVOTHYROXINE 175 MCG TABLET PO SCH (05:19)
[2018-08-26 05:56] VITALS: BP 128/74
[2018-08-26] MEDS: MULTIVITAMIN with MINERAL TABLET. PO SCH (07:56)
[2018-08-26] MEDS: ASPIRIN 81 MG TAB.CHEW PO SCH (07:56)
[2018-08-26] MEDS: POTASSIUM CHLORIDE 10 MEQ TABLET.ER. PO SCH ×2 (07:56→16:46)
[2018-08-26] MEDS: TORSEMIDE 20 MG TABLET. PO SCH (07:56)
[2018-08-26] MEDS: CARVEDILOL 12.5 MG TABLET PO SCH ×2 (07:56→16:46)
[2018-08-26] MEDS: SERTRALINE 50 MG TABLET. PO SCH (07:56)
[2018-08-26] MEDS: MAGNESIUM OXIDE 400 MG TABLET PO SCH (07:56)
[2018-08-26] MEDS: CYANOCOBALAMIN (VITAMIN B-12) 1,000 MCG TABLET. PO SCH (07:56)
[2018-08-26] MEDS: PANTOPRAZOLE 40 MG TABLET. PO SCH (07:56)
[2018-08-26] MEDS: hydrALAZINE 10 MG TABLET PO SCH ×3 (07:57→16:46)
[2018-08-26] MEDS: FENOFIBRATE NANOCRYSTALLIZED 48 MG TABLET PO SCH (07:57)
[2018-08-26] MEDS: UBIDECARENONE 50 MG CAPSULE. PO SCH (07:58)
--- NOTE | 2018-08-26 15:03 | PN ---
DATE: 08/25/2018 PSYCHIATRIC PROGRESS NOTE This is a late entry 08/25/2018 covers elements not covered in my initial note. SUBJECTIVE: I met with the patient in the evening. The patient slept 8 hours previous night. INR is elevated. We will defer to Dr. Alanis. Overall, his functioning is consistent with his mini mental status examination score of 20/30. He remains anxious, but less depressed and less obsessing and ruminating about "I am dying." Otherwise, pleasant, forgetful. REVIEW OF SYSTEMS: No CV, , pulmonary, eye, ENT system symptoms on review. MENTAL STATUS EXAM: Oriented to himself, situation. 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 Abstraction fair, computation impaired, language function intact. Short term memory is impaired. No active suicidal or homicidal ideation. LABORATORY DATA: Reviewed. IMPRESSION: Unchanged from initial note. PLAN: No change from initial note. MAN Roma LAYTON MD DR: SODNRA/enmanuel JOB#: [id number] / [id number]
[2018-08-26 16:36] VITALS: BP 161/80
[2018-08-26] MEDS: OLANZapine 5 MG TABLET PO SCH (20:03)
[2018-08-26] MEDS: ATORVASTATIN CALCIUM 10 MG TABLET. PO SCH (20:03)
[2018-08-26] MEDS: ACETAMINOPHEN 325 MG TABLET PO PRN (20:03)
[2018-08-26] MEDS: DONEPEZIL HCL 5 MG TABLET. PO SCH (20:03)
[2018-08-26] MEDS: EPLERENONE 25 MG PO SCH (20:03)
--- NOTE | 2018-08-26 23:14 | PDOC ---
Exam Note: Mikel Note: Please also refer to the separate dictated note~for this date of service dictated separately.~Patient seen individually. Discussed the patient with Nursing staff reviewed the chart.~Reviewed interim history and current functioning. Reviewed vital signs,~Labs/ Radiology~and current medications noted below. Continue current treatment with the changes noted in the dictated addendum note Assessment: Vital Signs: Vital Signs Date Time Temp Pulse Resp B/P (MAP) Pulse Ox O2 Delivery O2 Flow Rate FiO2 08/26/18 16:46 60 161/80 08/26/18 16:36 97.1 18 98 08/25/18 16:12 Room Air I&O Intake and Output 08/26/18 07:00 Intake Total 800 ml Balance 800 ml Intake Oral 800 ml Labs: Laboratory Tests Test 08/26/18 06:18 08/26/18 07:18 Prothrombin Time 31.0 SEC (9.4-11.4) H Prothrombin Time INR 3.3 (0.9-1.1) H Glucose (Fingerstick) 97 mg/dL (70-99) Current Medications: Meds: Current Medications Acetaminophen (Tylenol) 650 mg PRN Q6HRS PRN PO PAIN / TEMP Last administered on 08/26/18at 20:03; Start 08/18/18 at 03:00 Multi-Ingredient Ointment (Analgesic [place]) 1 bernadette PRN QID PRN TP MUSCLE PAIN; Start 08/18/18 at 03:00 Al Hydroxide/Mg Hydroxide (Mylanta Plus Xs) 15 ml PRN AFTMEALHC PRN PO DYSPEPSIA; Start 08/18/18 at 03:00 Magnesium Hydroxide (Milk Of Magnesia) 2,400 mg PRN QHS PRN PO CONSTIPATION; Start 08/18/18 at 03:00 Olanzapine (ZyPREXA ZYDIS) 5 mg PRN Q2HR PRN PO AGITATION; Start 08/18/18 at 10 :30; Stop 08/18/18 at 10:33; Status DC Olanzapine (ZyPREXA ZYDIS) 2.5 mg PRN Q2HR PRN PO AGITATION Last administered on 08/25/18at 21:49; Start 08/18/18 at 10:45 Cyanocobalamin (Vitamin B-12) 1,000 mcg DAILY PO Last administered on at 07:56; Start 08/18/18 at 11:30 Epleronone (Inspra) 25 mg HS PO Last administered on 08/26/18 20:03; Start at 21:00 Aspirin (Children'S Aspirin) 81 mg DAILYWBKFT PO Last administered on 07:56; Start 08/18/18 at 11:30 Atorvastatin Calcium (Lipitor) 10 mg QHS PO Last administered on 08/26/18 20: 03; Start 08/18/18 at 21:00 Donepezil HCl (Aricept) 5 mg QHS PO Last administered on 08/26/18 20:03; Start 08/18/18 at 21:00 Fenofibrate (Tricor) 48 mg DAILY PO Last administered on 08/26/18 07:57; Start 08/18/18 at 11:30 Hydralazine HCl (Apresoline) 10 mg TIDWMEALS PO Last administered on 08/26/18 16:46; Start 08/18/18 at 12:00 Levothyroxine Sodium (Synthroid) 150 mcg DAILY06 PO Last administered on 05:02; Start 08/18/18 at 11:30; Stop 08/20/18 at 12:27; Status DC Magnesium Oxide (Magnesium Oxide) 400 mg DAILY PO Last administered on 07:56; Start 08/18/18 at 11:30 Multivitamins/ Calcium (Thera-M Plus) 1 tab DAILY PO Last administered on 07:56; Start 08/18/18 at 11:30 Pantoprazole Sodium (Protonix) 40 mg DAILYAC PO Last administered on 08/26/18 07:56; Start 08/18/18 at 11:30 Potassium Chloride (Klor-Con) 30 meq BIDWMEALS PO Last administered on 16:46; Start 08/18/18 at 17:00 Sertraline HCl (Zoloft) 25 mg DAILY PO Last administered on 08/22/18 07:34; Start 08/18/18 at 11:30; Stop 08/22/18 at 18:56; Status DC Torsemide (Demadex) 20 mg DAILY PO Last administered on 08/26/18 07:56; Start 08/18/18 at 11:30 Warfarin Sodium (Coumadin Per Physician) 1 each PRN DAILY PRN MC SEE COMMENTS; Start 08/18/18 at 12:00; Stop 08/22/18 at 18:30; Status DC Carvedilol (Coreg) 12.5 mg BIDWMEALS PO Last administered on 08/26/18 16:46; Start 08/18/18 at 17:00 Coenzyme Q10 (Coenzyme Q10) 300 mg DAILYWLUN PO Last administered on 08/26/18 07:58; Start 08/18/18 at 12:00 Dextrose 1,000 ml @ 80 mls/hr [id number] IV ; Start 08/19/18 at 11:00; Status Cancel Warfarin Sodium (Coumadin) 2 mg DAILY16 PO Last administered on 08/22/18 15:44 ; Start 08/19/18 at 17:00; Stop 08/22/18 at 19:09; Status DC Olanzapine (ZyPREXA ZYDIS) 5 mg 1X ONCE PO Last administered on 08/19/18 21: 36; Start 08/19/18 at 22:00; Stop 08/19/18 at 22:01; Status DC Lorazepam (Ativan) 0.5 mg PRN Q6HRS PRN PO ANXIETY / AGITATION Last administered on 08/25/18 20:15; Start 08/19/18 at 21:30 Levothyroxine Sodium (Synthroid) 175 mcg DAILY06 PO Last administered on 05:19; Start 08/21/18 at 06:00 Olanzapine (ZyPREXA) 5 mg HS PO Last administered on 08/26/18 20:03; Start at 21:00; Stop 08/26/18 at 21:52; Status DC Warfarin Sodium (Coumadin Per Pharmacy) 1 each PRN DAILY PRN MC SEE COMMENTS Last administered on 08/26/18 08:30; Start 08/22/18 at 18:30 Sertraline HCl (Zoloft) 50 mg DAILY PO Last administered on 08/26/18 07:56; Start 08/23/18 at 09:00 Warfarin Sodium (Coumadin) 3 mg 1X WARF ONCE PO Last administered on 16:36; Start 3/20/19 at 16:00; Stop 08/23/18 at 16:02; Status DC Warfarin Sodium (Coumadin) 3 mg 1X WARF ONCE PO Last administered on at 16:12; Start 08/24/18 at 16:00; Stop 08/24/18 at 16:03; Status DC Warfarin Sodium (Coumadin) 2 mg 1X WARF ONCE PO Last administered on at 16:43; Start 08/25/18 at 16:00; Stop 08/25/18 at 16:01; Status DC Olanzapine (ZyPREXA) 2.5 mg HS PO ; Start 08/27/18 at 21:00 Active Scripts Active Reported Demadex (Torsemide) 20 Mg Tablet 20 Mg PO BID92 Carvedilol 12.5 Mg Tablet 12.5 Mg PO BID Potassium Chloride 10 Meq Capsule.er 30 PO BIDWMEALS Warfarin Sodium 3 Mg Tablet 3 Mg PO 5XWEEK Warfarin Sodium 2 Mg Tablet 2 Mg PO QMTH Multivitamins (Multivitamin) 1 Each Tablet 1 Tab PO DAILY Atorvastatin Calcium 10 Mg Tablet 10 Mg PO QHS K-Tab ER (Potassium Chloride) 8 Meq Tablet.er Unknown Dose PO BIDWMEALS Omeprazole 20 Mg Tablet.dr 20 Mg PO DAILY Magnesium (Magnesium Oxide) 500 Mg Capsule 500 Mg PO DAILY Levothyroxine Sodium 150 Mcg Tablet 150 Mcg PO DAILYAC Hydralazine Hcl 10 Mg Tablet 10 Mg PO TIDWMEALS Fenofibrate (Fenofibrate Nanocrystallized) 48 Mg Tablet 48 Mg PO DAILY Eplerenone 25 Mg Tablet 25 Mg PO HS Aspirin 81 Mg Tab.chew 81 Mg PO DAILY Vitamin B-12 (Cyanocobalamin (Vitamin B-12)) 1,000 Mcg Tablet 1,000 Mcg PO DAILY Coq-10 (Ubidecarenone) 100 Mg Capsule 300 Mg PO DAILYWLUN Donepezil Hcl 5 Mg Tablet 5 Mg PO HS Zoloft (Sertraline Hcl) 25 Mg Tablet 25 Mg PO DAILY I have reviewed the current psychotropics carefully including drug interactions. Risk benefit ratio favors no change other than as noted in my dictated progress note. Diagnosis: Problems: (1) Anxiety disorder (2) Dementia, vascular, with depression (3) Dementia, vascular, with delusions (4) Impulse control disorder MARYJO LAYTON MD Aug 26, 2018 23:14
[2018-08-27] MEDS: LEVOTHYROXINE 175 MCG TABLET PO SCH (06:03)
[2018-08-27 06:21] VITALS: BP 101/59
[2018-08-27] MEDS: TORSEMIDE 20 MG TABLET. PO SCH (07:45)
[2018-08-27] MEDS: PANTOPRAZOLE 40 MG TABLET. PO SCH (07:45)
[2018-08-27] MEDS: MULTIVITAMIN with MINERAL TABLET. PO SCH (07:45)
[2018-08-27] MEDS: CYANOCOBALAMIN (VITAMIN B-12) 1,000 MCG TABLET. PO SCH (07:45)
[2018-08-27] MEDS: POTASSIUM CHLORIDE 10 MEQ TABLET.ER. PO SCH ×2 (07:46→17:07)
[2018-08-27] MEDS: ASPIRIN 81 MG TAB.CHEW PO SCH (07:46)
[2018-08-27] MEDS: SERTRALINE 50 MG TABLET. PO SCH (07:46)
[2018-08-27] MEDS: CARVEDILOL 12.5 MG TABLET PO SCH ×3 (07:47→17:08)
[2018-08-27] MEDS: hydrALAZINE 10 MG TABLET PO SCH ×4 (07:48→17:09)
[2018-08-27] MEDS: MAGNESIUM OXIDE 400 MG TABLET PO SCH (07:51)
[2018-08-27] MEDS: EPLERENONE 25 MG PO SCH ×2 (07:52→21:13)
[2018-08-27] MEDS: FENOFIBRATE NANOCRYSTALLIZED 48 MG TABLET PO SCH (07:53)
[2018-08-27] MEDS: UBIDECARENONE 50 MG CAPSULE. PO SCH (11:55)
[2018-08-27 16:48] VITALS: BP 111/64
[2018-08-27] MEDS: ATORVASTATIN CALCIUM 10 MG TABLET. PO SCH (21:13)
[2018-08-27] MEDS: DONEPEZIL HCL 5 MG TABLET. PO SCH (21:13)
[2018-08-27] MEDS: OLANZapine 5 MG TABLET PO SCH (21:13)
--- NOTE | 2018-08-27 23:40 | PDOC ---
Exam Note: Mikel Note: Please also refer to the separate dictated note~for this date of service dictated separately.~Patient seen individually. Discussed the patient with Nursing staff reviewed the chart.~Reviewed interim history and current functioning. Reviewed vital signs,~Labs/ Radiology~and current medications noted below. Continue current treatment with the changes noted in the dictated addendum note Assessment: Vital Signs: Vital Signs Date Time Temp Pulse Resp B/P (MAP) Pulse Ox O2 Delivery O2 Flow Rate FiO2 08/27/18 17:09 73 111/64 08/27/18 16:48 98.5 16 94 Room Air I&O Intake and Output 08/27/18 07:00 Intake Total 1260 ml Balance 1260 ml Intake Oral 1260 ml # Voids 1 Labs: Laboratory Tests Test 08/27/18 06:59 08/27/18 07:36 Prothrombin Time 34.2 SEC (9.4-11.4) H Prothrombin Time INR 3.6 (0.9-1.1) H Glucose (Fingerstick) 88 mg/dL (70-99) Current Medications: Meds: Current Medications Acetaminophen (Tylenol) 650 mg PRN Q6HRS PRN PO PAIN / TEMP Last administered on 08/26/18at 20:03; Start 08/18/18 at 03:00 Multi-Ingredient Ointment (Analgesic [place]) 1 bernadette PRN QID PRN TP MUSCLE PAIN; Start 08/18/18 at 03:00 Al Hydroxide/Mg Hydroxide (Mylanta Plus Xs) 15 ml PRN AFTMEALHC PRN PO DYSPEPSIA; Start 08/18/18 at 03:00 Magnesium Hydroxide (Milk Of Magnesia) 2,400 mg PRN QHS PRN PO CONSTIPATION; Start 08/18/18 at 03:00 Olanzapine (ZyPREXA ZYDIS) 5 mg PRN Q2HR PRN PO AGITATION; Start 08/18/18 at 10 :30; Stop 08/18/18 at 10:33; Status DC Olanzapine (ZyPREXA ZYDIS) 2.5 mg PRN Q2HR PRN PO AGITATION Last administered on 08/25/18at 21:49; Start 08/18/18 at 10:45 Cyanocobalamin (Vitamin B-12) 1,000 mcg DAILY PO Last administered on at 07:45; Start 08/18/18 at 11:30 Epleronone (Inspra) 25 mg HS PO Last administered on 08/27/18 21:13; Start at 21:00 Aspirin (Children'S Aspirin) 81 mg DAILYWBKFT PO Last administered on 07:46; Start 08/18/18 at 11:30 Atorvastatin Calcium (Lipitor) 10 mg QHS PO Last administered on 08/27/18 21: 13; Start 08/18/18 at 21:00 Donepezil HCl (Aricept) 5 mg QHS PO Last administered on 08/27/18 21:13; Start 08/18/18 at 21:00 Fenofibrate (Tricor) 48 mg DAILY PO Last administered on 08/27/18 07:53; Start 08/18/18 at 11:30 Hydralazine HCl (Apresoline) 10 mg TIDWMEALS PO Last administered on 08/27/18 17:09; Start 08/18/18 at 12:00 Levothyroxine Sodium (Synthroid) 150 mcg DAILY06 PO Last administered on 05:02; Start 08/18/18 at 11:30; Stop 08/20/18 at 12:27; Status DC Magnesium Oxide (Magnesium Oxide) 400 mg DAILY PO Last administered on 07:51; Start 08/18/18 at 11:30 Multivitamins/ Calcium (Thera-M Plus) 1 tab DAILY PO Last administered on 07:45; Start 08/18/18 at 11:30 Pantoprazole Sodium (Protonix) 40 mg DAILYAC PO Last administered on 08/27/18 07:45; Start 08/18/18 at 11:30 Potassium Chloride (Klor-Con) 30 meq BIDWMEALS PO Last administered on 17:07; Start 08/18/18 at 17:00 Sertraline HCl (Zoloft) 25 mg DAILY PO Last administered on 08/22/18 07:34; Start 08/18/18 at 11:30; Stop 08/22/18 at 18:56; Status DC Torsemide (Demadex) 20 mg DAILY PO Last administered on 08/27/18 07:45; Start 08/18/18 at 11:30 Warfarin Sodium (Coumadin Per Physician) 1 each PRN DAILY PRN MC SEE COMMENTS; Start 08/18/18 at 12:00; Stop 08/22/18 at 18:30; Status DC Carvedilol (Coreg) 12.5 mg BIDWMEALS PO Last administered on 08/27/18 17:08; Start 08/18/18 at 17:00 Coenzyme Q10 (Coenzyme Q10) 300 mg DAILYWLUN PO Last administered on 08/27/18 11:55; Start 08/18/18 at 12:00 Dextrose 1,000 ml @ 80 mls/hr [id number] IV ; Start 08/19/18 at 11:00; Status Cancel Warfarin Sodium (Coumadin) 2 mg DAILY16 PO Last administered on 08/22/18 15:44 ; Start 08/19/18 at 17:00; Stop 08/22/18 at 19:09; Status DC Olanzapine (ZyPREXA ZYDIS) 5 mg 1X ONCE PO Last administered on 08/19/18 21: 36; Start 08/19/18 at 22:00; Stop 08/19/18 at 22:01; Status DC Lorazepam (Ativan) 0.5 mg PRN Q6HRS PRN PO ANXIETY / AGITATION Last administered on 08/25/18 20:15; Start 08/19/18 at 21:30 Levothyroxine Sodium (Synthroid) 175 mcg DAILY06 PO Last administered on 06:03; Start 08/21/18 at 06:00 Olanzapine (ZyPREXA) 5 mg HS PO Last administered on 08/26/18 20:03; Start at 21:00; Stop 08/26/18 at 21:52; Status DC Warfarin Sodium (Coumadin Per Pharmacy) 1 each PRN DAILY PRN MC SEE COMMENTS Last administered on 08/27/18 09:36; Start 08/22/18 at 18:30 Sertraline HCl (Zoloft) 50 mg DAILY PO Last administered on 08/27/18 07:46; Start 08/23/18 at 09:00; Stop 08/27/18 at 15:52; Status DC Warfarin Sodium (Coumadin) 3 mg 1X WARF ONCE PO Last administered on 3/20/ 19at 16:36; Start 08/23/18 at 16:00; Stop 08/23/18 at 16:02; Status DC Warfarin Sodium (Coumadin) 3 mg 1X WARF ONCE PO Last administered on at 16:12; Start 08/24/18 at 16:00; Stop 08/24/18 at 16:03; Status DC Warfarin Sodium (Coumadin) 2 mg 1X WARF ONCE PO Last administered on at 16:43; Start 08/25/18 at 16:00; Stop 08/25/18 at 16:01; Status DC Olanzapine (ZyPREXA) 2.5 mg HS PO Last administered on 08/27/18at 21:13; Start 08/27/18 at 21:00 Warfarin Sodium (Coumadin - No Dose Today) 1 each 1X WARF ONCE MC ; Start 08/27 at 16:00; Stop 08/27/18 at 16:02; Status DC Sertraline HCl (Zoloft) 75 mg DAILY PO ; Start 08/28/18 at 09:00 Active Scripts Active Reported Demadex (Torsemide) 20 Mg Tablet 20 Mg PO BID92 Carvedilol 12.5 Mg Tablet 12.5 Mg PO BID Potassium Chloride 10 Meq Capsule.er 30 PO BIDWMEALS Warfarin Sodium 3 Mg Tablet 3 Mg PO 5XWEEK Warfarin Sodium 2 Mg Tablet 2 Mg PO QMTH Multivitamins (Multivitamin) 1 Each Tablet 1 Tab PO DAILY Atorvastatin Calcium 10 Mg Tablet 10 Mg PO QHS K-Tab ER (Potassium Chloride) 8 Meq Tablet.er Unknown Dose PO BIDWMEALS Omeprazole 20 Mg Tablet.dr 20 Mg PO DAILY Magnesium (Magnesium Oxide) 500 Mg Capsule 500 Mg PO DAILY Levothyroxine Sodium 150 Mcg Tablet 150 Mcg PO DAILYAC Hydralazine Hcl 10 Mg Tablet 10 Mg PO TIDWMEALS Fenofibrate (Fenofibrate Nanocrystallized) 48 Mg Tablet 48 Mg PO DAILY Eplerenone 25 Mg Tablet 25 Mg PO HS Aspirin 81 Mg Tab.chew 81 Mg PO DAILY Vitamin B-12 (Cyanocobalamin (Vitamin B-12)) 1,000 Mcg Tablet 1,000 Mcg PO DAILY Coq-10 (Ubidecarenone) 100 Mg Capsule 300 Mg PO DAILYWLUN Donepezil Hcl 5 Mg Tablet 5 Mg PO HS Zoloft (Sertraline Hcl) 25 Mg Tablet 25 Mg PO DAILY I have reviewed the current psychotropics carefully including drug interactions. Risk benefit ratio favors no change other than as noted in my dictated progress note. Diagnosis: Problems: (1) Anxiety disorder (2) Dementia, vascular, with depression (3) Dementia, vascular, with delusions (4) Impulse control disorder MRAYJO LAYTON MD Aug 27, 2018 23:40
[2018-08-27] MEDS: LORazepam 0.5 MG TABLET PO PRN (23:58)
[2018-08-27] MEDS: ACETAMINOPHEN 325 MG TABLET PO PRN (23:58)
[2018-08-28 05:07] VITALS: BP 138/83
[2018-08-28] MEDS: LEVOTHYROXINE 175 MCG TABLET PO SCH (06:00)
[2018-08-28 06:24] VITALS: BP 126/77
[2018-08-28] MEDS: ASPIRIN 81 MG TAB.CHEW PO SCH (08:59)
[2018-08-28] MEDS: MULTIVITAMIN with MINERAL TABLET. PO SCH (08:59)
[2018-08-28] MEDS: PANTOPRAZOLE 40 MG TABLET. PO SCH (08:59)
[2018-08-28] MEDS: TORSEMIDE 20 MG TABLET. PO SCH (08:59)
[2018-08-28] MEDS: CYANOCOBALAMIN (VITAMIN B-12) 1,000 MCG TABLET. PO SCH (08:59)
[2018-08-28] MEDS: POTASSIUM CHLORIDE 10 MEQ TABLET.ER. PO SCH ×2 (09:00→16:14)
[2018-08-28] MEDS: CARVEDILOL 12.5 MG TABLET PO SCH ×2 (09:01→17:20)
[2018-08-28] MEDS: hydrALAZINE 10 MG TABLET PO SCH ×4 (09:01→17:20)
[2018-08-28] MEDS: FENOFIBRATE NANOCRYSTALLIZED 48 MG TABLET PO SCH (09:02)
[2018-08-28] MEDS: SERTRALINE 50 MG TABLET. PO SCH (09:03)
[2018-08-28] MEDS: MAGNESIUM OXIDE 400 MG TABLET PO SCH (09:03)
[2018-08-28] MEDS: UBIDECARENONE 50 MG CAPSULE. PO SCH (12:29)
[2018-08-28] MEDS ORDERED: WARFARIN 3 MG TABLET. PO ONE (16:00)
[2018-08-28 17:11] VITALS: BP 127/79
[2018-08-28] MEDS: ATORVASTATIN CALCIUM 10 MG TABLET. PO SCH (20:24)
[2018-08-28] MEDS: MIRTAZAPINE 7.5 MG TABLET. PO SCH (20:24)
[2018-08-28] MEDS: EPLERENONE 25 MG PO SCH (20:24)
[2018-08-28] MEDS: DONEPEZIL HCL 5 MG TABLET. PO SCH (20:24)
[2018-08-28] MEDS: OLANZapine 5 MG TABLET PO SCH (20:24)
--- NOTE | 2018-08-28 20:34 | PN ---
DATE: 08/26/2018 PSYCHIATRIC PROGRESS NOTE This late entry 08/26/2018 covers elements not covered in my initial note. SUBJECTIVE: I met with the patient late in the evening 08/26/2018. The patient slept 5-1/2 hours previous night. He continues to be somewhat anxious, repeatedly making statements that he is dying, little agitated, banging on doors at one point, takes his medications whole. REVIEW OF SYSTEMS: No CV, , pulmonary, eye system symptoms on review. 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 MENTAL STATUS EXAM: Oriented to himself. Speech has some latency, coherent, often responses monosyllabic. Abstraction fair, computation impaired, language function intact. Mood and affect somewhat withdrawn. LABORATORY DATA: Reviewed. IMPRESSION: Unchanged from initial note. PLAN: Reduce Zyprexa from 5 mg at bedtime down to 2.5 mg at bedtime considering the risk/benefit ratio. Rest unchanged from initial note. We will gradually increase the Zoloft further. MAN Roma LAYTON MD DR: SONDRA/enmanuel JOB#: [id number] / [id number]
--- NOTE | 2018-08-28 20:35 | PN ---
DATE: 08/27/2018 PSYCHIATRIC PROGRESS NOTE This late entry 08/27/2018 covers elements not covered in my initial note. SUBJECTIVE: I met with the patient in the evening. The patient slept 5-1/4 hours previous night. He continues to be somewhat anxious, withdrawn, repeatedly stating "I am dying." I processed this with him. REVIEW OF SYSTEMS: Poor vision. No CV, , GI, ENT system symptoms on review. Reliability poor. MENTAL STATUS EXAM: Oriented to himself, at times situation. Speech has some latency, often responses monosyllabic. He followed me around the unit while I made rounds and seemed less anxious as he held my hand walking all over the unit. No suicidal or homicidal ideation. LABORATORY DATA: Reviewed. IMPRESSION: Unchanged from initial note. PLAN: Increase Zoloft to 75 mg a day after he has been on 50 mg for 3 days. Rest unchanged. MAN Roma LAYTON MD DR: SONDRA/enmanuel JOB#: [id number] / [id number]
--- NOTE | 2018-08-28 22:47 | PDOC ---
Exam Note: Mikel Note: Please also refer to the separate dictated note~for this date of service dictated separately.~Patient seen individually. Discussed the patient with Nursing staff reviewed the chart.~Reviewed interim history and current functioning. Reviewed vital signs,~Labs/ Radiology~and current medications noted below. Continue current treatment with the changes noted in the dictated addendum note Assessment: Vital Signs: Vital Signs Date Time Temp Pulse Resp B/P (MAP) Pulse Ox O2 Delivery O2 Flow Rate FiO2 08/28/18 17:20 78 127/79 08/28/18 17:11 98.6 20 95 08/28/18 06:24 Room Air I&O Intake and Output 08/28/18 07:00 Intake Total 960 ml Balance 960 ml Intake Oral 960 ml Labs: Laboratory Tests Test 08/28/18 07:07 08/28/18 07:16 Prothrombin Time 27.4 SEC (9.4-11.4) H Prothrombin Time INR 2.9 (0.9-1.1) H Glucose (Fingerstick) 107 mg/dL (70-99) H Current Medications: Meds: Current Medications Acetaminophen (Tylenol) 650 mg PRN Q6HRS PRN PO PAIN / TEMP Last administered on 08/27/18at 23:58; Start 08/18/18 at 03:00 Multi-Ingredient Ointment (Analgesic [place]) 1 bernadette PRN QID PRN TP MUSCLE PAIN; Start 08/18/18 at 03:00 Al Hydroxide/Mg Hydroxide (Mylanta Plus Xs) 15 ml PRN AFTMEALHC PRN PO DYSPEPSIA; Start 08/18/18 at 03:00 Magnesium Hydroxide (Milk Of Magnesia) 2,400 mg PRN QHS PRN PO CONSTIPATION; Start 08/18/18 at 03:00 Olanzapine (ZyPREXA ZYDIS) 5 mg PRN Q2HR PRN PO AGITATION; Start 08/18/18 at 10 :30; Stop 08/18/18 at 10:33; Status DC Olanzapine (ZyPREXA ZYDIS) 2.5 mg PRN Q2HR PRN PO AGITATION Last administered on 08/28/18at 01:24; Start 08/18/18 at 10:45 Cyanocobalamin (Vitamin B-12) 1,000 mcg DAILY PO Last administered on at 08:59; Start 08/18/18 at 11:30 Epleronone (Inspra) 25 mg HS PO Last administered on 08/28/18 20:24; Start at 21:00 Aspirin (Children'S Aspirin) 81 mg DAILYWBKFT PO Last administered on 08:59; Start 08/18/18 at 11:30 Atorvastatin Calcium (Lipitor) 10 mg QHS PO Last administered on 08/28/18 20: 24; Start 08/18/18 at 21:00 Donepezil HCl (Aricept) 5 mg QHS PO Last administered on 08/28/18 20:24; Start 08/18/18 at 21:00 Fenofibrate (Tricor) 48 mg DAILY PO Last administered on 08/28/18 09:02; Start 08/18/18 at 11:30 Hydralazine HCl (Apresoline) 10 mg TIDWMEALS PO Last administered on 08/28/18 17:20; Start 08/18/18 at 12:00 Levothyroxine Sodium (Synthroid) 150 mcg DAILY06 PO Last administered on 05:02; Start 08/18/18 at 11:30; Stop 08/20/18 at 12:27; Status DC Magnesium Oxide (Magnesium Oxide) 400 mg DAILY PO Last administered on 09:03; Start 08/18/18 at 11:30 Multivitamins/ Calcium (Thera-M Plus) 1 tab DAILY PO Last administered on 08:59; Start 08/18/18 at 11:30 Pantoprazole Sodium (Protonix) 40 mg DAILYAC PO Last administered on 08/28/18 08:59; Start 08/18/18 at 11:30 Potassium Chloride (Klor-Con) 30 meq BIDWMEALS PO Last administered on 16:14; Start 08/18/18 at 17:00 Sertraline HCl (Zoloft) 25 mg DAILY PO Last administered on 08/22/18 07:34; Start 08/18/18 at 11:30; Stop 08/22/18 at 18:56; Status DC Torsemide (Demadex) 20 mg DAILY PO Last administered on 3/25/19at 08:59; Start 08/18/18 at 11:30 Warfarin Sodium (Coumadin Per Physician) 1 each PRN DAILY PRN MC SEE COMMENTS; Start 08/18/18 at 12:00; Stop 08/22/18 at 18:30; Status DC Carvedilol (Coreg) 12.5 mg BIDWMEALS PO Last administered on 08/28/18 17:20; Start 08/18/18 at 17:00 Coenzyme Q10 (Coenzyme Q10) 300 mg DAILYWLUN PO Last administered on 08/28/18 12:29; Start 08/18/18 at 12:00 Dextrose 1,000 ml @ 80 mls/hr [id number] IV ; Start 08/19/18 at 11:00; Status Cancel Warfarin Sodium (Coumadin) 2 mg DAILY16 PO Last administered on 08/22/18 15:44 ; Start 08/19/18 at 17:00; Stop 08/22/18 at 19:09; Status DC Olanzapine (ZyPREXA ZYDIS) 5 mg 1X ONCE PO Last administered on 08/19/18 21: 36; Start 08/19/18 at 22:00; Stop 08/19/18 at 22:01; Status DC Lorazepam (Ativan) 0.5 mg PRN Q6HRS PRN PO ANXIETY / AGITATION Last administered on 08/27/18 23:58; Start 08/19/18 at 21:30 Levothyroxine Sodium (Synthroid) 175 mcg DAILY06 PO Last administered on 06:00; Start 08/21/18 at 06:00 Olanzapine (ZyPREXA) 5 mg HS PO Last administered on 08/26/18 20:03; Start at 21:00; Stop 08/26/18 at 21:52; Status DC Warfarin Sodium (Coumadin Per Pharmacy) 1 each PRN DAILY PRN MC SEE COMMENTS Last administered on 08/28/18 14:39; Start 08/22/18 at 18:30 Sertraline HCl (Zoloft) 50 mg DAILY PO Last administered on 08/27/18 07:46; Start 08/23/18 at 09:00; Stop 08/27/18 at 15:52; Status DC Warfarin Sodium (Coumadin) 3 mg 1X WARF ONCE PO Last administered on 16:36; Start 08/23/18 at 16:00; Stop 08/23/18 at 16:02; Status DC Warfarin Sodium (Coumadin) 3 mg 1X WARF ONCE PO Last administered on 16:12; Start 08/24/18 at 16:00; Stop 08/24/18 at 16:03; Status DC Warfarin Sodium (Coumadin) 2 mg 1X WARF ONCE PO Last administered on 16:43; Start 08/25/18 at 16:00; Stop 08/25/18 at 16:01; Status DC Olanzapine (ZyPREXA) 2.5 mg HS PO Last administered on 08/28/18 20:24; Start 08/27/18 at 21:00 Warfarin Sodium (Coumadin - No Dose Today) 1 each 1X WARF ONCE MC ; Start 08/27 at 16:00; Stop 08/27/18 at 16:02; Status DC Sertraline HCl (Zoloft) 75 mg DAILY PO Last administered on 08/28/18 09:03; Start 08/28/18 at 09:00 Warfarin Sodium (Coumadin) 3 mg 1X WARF ONCE PO Last administered on 16:13; Start 08/28/18 at 16:00; Stop 08/28/18 at 16:01; Status DC Mirtazapine (Remeron) 7.5 mg QHS PO Last administered on 08/28/18 20:24; Start 08/28/18 at 21:00 Active Scripts Active Reported Demadex (Torsemide) 20 Mg Tablet 20 Mg PO [id number] Carvedilol 12.5 Mg Tablet 12.5 Mg PO BID Potassium Chloride 10 Meq Capsule.er 30 PO BIDWMEALS Warfarin Sodium 3 Mg Tablet 3 Mg PO 5XWEEK Warfarin Sodium 2 Mg Tablet 2 Mg PO QMTH Multivitamins (Multivitamin) 1 Each Tablet 1 Tab PO DAILY Atorvastatin Calcium 10 Mg Tablet 10 Mg PO QHS K-Tab ER (Potassium Chloride) 8 Meq Tablet.er Unknown Dose PO BIDWMEALS Omeprazole 20 Mg Tablet.dr 20 Mg PO DAILY Magnesium (Magnesium Oxide) 500 Mg Capsule 500 Mg PO DAILY Levothyroxine Sodium 150 Mcg Tablet 150 Mcg PO DAILYAC Hydralazine Hcl 10 Mg Tablet 10 Mg PO TIDWMEALS Fenofibrate (Fenofibrate Nanocrystallized) 48 Mg Tablet 48 Mg PO DAILY Eplerenone 25 Mg Tablet 25 Mg PO HS Aspirin 81 Mg Tab.chew 81 Mg PO DAILY Vitamin B-12 (Cyanocobalamin (Vitamin B-12)) 1,000 Mcg Tablet 1,000 Mcg PO DAILY Coq-10 (Ubidecarenone) 100 Mg Capsule 300 Mg PO DAILYWLUN Donepezil Hcl 5 Mg Tablet 5 Mg PO HS Zoloft (Sertraline Hcl) 25 Mg Tablet 25 Mg PO DAILY I have reviewed the current psychotropics carefully including drug interactions. Risk benefit ratio favors no change other than as noted in my dictated progress note. Diagnosis: Problems: (1) Anxiety disorder (2) Dementia, vascular, with depression (3) Dementia, vascular, with delusions (4) Impulse control disorder MARYJO LAYTON MD Aug 28, 2018 22:47
[2018-08-29] MEDS: LEVOTHYROXINE 175 MCG TABLET PO SCH (05:51)
[2018-08-29 06:07] VITALS: BP 164/80
[2018-08-29 07:54] LABS: BASO # 0.1 x10^3/uL (0.0-0.2); BASO % 1 % (0-3); EOS # 0.5 x10^3/uL (0.0-0.7); EOS % 8 % (0-3); HEMATOCRIT 37.9 % (39.0-53.0); HEMOGLOBIN 12.5 g/dL (13.0-17.5); LYMPH # 0.6 x10^3/uL (1.0-4.8); LYMPH % 10 % (24-48); MEAN CORPUSCULAR HEMOGLOBIN 28 pg (25-35); MEAN CORPUSCULAR HGB CONC 33 g/dL (31-37); MEAN CORPUSCULAR VOLUME 85 fL (79-100); MONO % 16 % (0-9); NEUT # 4.3 x10^3uL (1.8-7.7); NEUT % 65 % (31-73); PLATELET COUNT 196 x10^3/uL (140-400); RED BLOOD COUNT 4.47 x10^6/uL (4.30-5.70); RED CELL DISTRIBUTION WIDTH 20.1 % (11.5-14.5); WHITE BLOOD COUNT 6.5 x10^3/uL (4.0-11.0)
[2018-08-29 07:59] LABS: ALBUMIN 3.6 g/dL (3.4-5.0); ALBUMIN/GLOBULIN RATIO 1.2 (1.0-1.7); CALCIUM 8.9 mg/dL (8.5-10.1); CREATININE 1.5 mg/dL (0.7-1.3); GFR 46.1; TOTAL BILIRUBIN 0.7 mg/dL (0.2-1.0); TOTAL PROTEIN 6.5 g/dL (6.4-8.2)
[2018-08-29] MEDS: MAGNESIUM OXIDE 400 MG TABLET PO SCH (08:01)
[2018-08-29] MEDS: MULTIVITAMIN with MINERAL TABLET. PO SCH (08:01)
[2018-08-29] MEDS: TORSEMIDE 20 MG TABLET. PO SCH (08:01)
[2018-08-29] MEDS: POTASSIUM CHLORIDE 10 MEQ TABLET.ER. PO SCH ×2 (08:02→17:20)
[2018-08-29] MEDS: ASPIRIN 81 MG TAB.CHEW PO SCH (08:02)
[2018-08-29] MEDS: PANTOPRAZOLE 40 MG TABLET. PO SCH (08:02)
[2018-08-29] MEDS: CYANOCOBALAMIN (VITAMIN B-12) 1,000 MCG TABLET. PO SCH (08:03)
[2018-08-29] MEDS: CARVEDILOL 12.5 MG TABLET PO SCH ×2 (08:03→17:00)
[2018-08-29] MEDS: FENOFIBRATE NANOCRYSTALLIZED 48 MG TABLET PO SCH (08:03)
[2018-08-29] MEDS: SERTRALINE 50 MG TABLET. PO SCH (08:04)
[2018-08-29] MEDS: hydrALAZINE 10 MG TABLET PO SCH ×3 (08:04→17:00)
[2018-08-29 09:05] LABS: % ATYL 2 % (0-0); % BANDS 2 % (0-9); % EOS 5 % (0-5); % LYMPHS 11 % (24-48); % MONOS 15 % (0-10); % SEGS 65 % (35-66)
[2018-08-29 09:06] LABS: PLT ESTIMATE ADEQUATE (ADEQUATE)
[2018-08-29] MEDS: UBIDECARENONE 50 MG CAPSULE. PO SCH (12:39)
[2018-08-29] MEDS ORDERED: WARFARIN 3 MG TABLET. PO ONE (16:00)
[2018-08-29 16:21] VITALS: BP 96/58
[2018-08-29] MEDS: ATORVASTATIN CALCIUM 10 MG TABLET. PO SCH (19:35)
[2018-08-29] MEDS: OLANZapine 5 MG TABLET PO SCH (19:35)
[2018-08-29] MEDS: MIRTAZAPINE 7.5 MG TABLET. PO SCH (19:35)
[2018-08-29] MEDS: LORazepam 0.5 MG TABLET PO PRN (19:37)
[2018-08-29] MEDS: EPLERENONE 25 MG PO SCH (19:37)
[2018-08-29] MEDS ORDERED: DONEPEZIL HCL 10 MG TABLET PO SCH (21:00)
--- NOTE | 2018-08-29 22:17 | PN ---
DATE: 08/28/2018 PSYCHIATRIC PROGRESS NOTE This late entry 08/28/2018 covers elements not covered in my initial note. SUBJECTIVE: I met with the patient in the evening. The patient slept just 2-1/4 hours previous night. He continues to be anxious, repeatedly stating "I am going to ." After lunch, he went to sleep and then he did better. REVIEW OF SYSTEMS: No CV, , pulmonary, eye, ENT system symptoms on review. Reliability poor, met with him in his room. MENTAL STATUS EXAM: Oriented to himself, at times situation. Speech has some latency, coherent. He is obsessing about discharge plans again as I met with him. Abstraction fair, computation impaired, language function intact, attention span short. Mood and affect withdrawn. LABORATORY DATA: Reviewed. IMPRESSION: Unchanged from initial note. PLAN: No change from initial note, but we will add Remeron 7.5 mg at bedtime to help with insomnia and anxiety as well. MAN Roma LAYTON MD DR: SONDRA/enmanuel JOB#: [id number] / [id number]
--- NOTE | 2018-08-29 23:00 | PDOC ---
Exam Note: Mikel Note: Please also refer to the separate dictated note~for this date of service dictated separately.~Patient seen individually. Discussed the patient with Nursing staff reviewed the chart.~Reviewed interim history and current functioning. Reviewed vital signs,~Labs/ Radiology~and current medications noted below. Continue current treatment with the changes noted in the dictated addendum note Assessment: Vital Signs: Vital Signs Date Time Temp Pulse Resp B/P (MAP) Pulse Ox O2 Delivery O2 Flow Rate FiO2 08/29/18 17:00 60 96/58 08/29/18 16:21 97.9 18 96 Room Air I&O Intake and Output 08/29/18 07:00 Intake Total 1720 ml Balance 1720 ml Intake Oral 1720 ml Labs: Laboratory Tests Test 08/29/18 07:13 08/29/18 07:17 White Blood Count 6.5 x10^3/uL (4.0-11.0) Red Blood Count 4.47 x10^6/uL (4.30-5.70) Hemoglobin 12.5 g/dL (13.0-17.5) L Hematocrit 37.9 % (39.0-53.0) L Mean Corpuscular Volume 85 fL (79-100) Mean Corpuscular Hemoglobin 28 pg (25-35) Mean Corpuscular Hemoglobin Concent 33 g/dL (31-37) Red Cell Distribution Width 20.1 % (11.5-14.5) H Platelet Count 196 x10^3/uL (140-400) Neutrophils (%) (Auto) 65 % (31-73) Lymphocytes (%) (Auto) 10 % (24-48) L Monocytes (%) (Auto) 16 % (0-9) H Eosinophils (%) (Auto) 8 % (0-3) H Basophils (%) (Auto) 1 % (0-3) Neutrophils # (Auto) 4.3 x10^3uL (1.8-7.7) Lymphocytes # (Auto) 0.6 x10^3/uL (1.0-4.8) L Monocytes # (Auto) 1.0 x10^3/uL (0.0-1.1) Eosinophils # (Auto) 0.5 x10^3/uL (0.0-0.7) Basophils # (Auto) 0.1 x10^3/uL (0.0-0.2) Segmented Neutrophils % 65 % (35-66) Band Neutrophils % 2 % (0-9) Lymphocytes % 11 % (24-48) L Atypical Lymphocytes % (Manual) 2 % (0-0) H Monocytes % 15 % (0-10) H Eosinophils % 5 % (0-5) Platelet Estimate Adequate (ADEQUATE) Prothrombin Time 22.5 SEC (9.4-11.4) H Prothrombin Time INR 2.3 (0.9-1.1) H Sodium Level 144 mmol/L (136-145) Potassium Level 4.0 mmol/L (3.5-5.1) Chloride Level 107 mmol/L (98-107) Carbon Dioxide Level 31 mmol/L (21-32) Anion Gap 6 (6-14) Blood Urea Nitrogen 28 mg/dL (8-26) H Creatinine 1.5 mg/dL (0.7-1.3) H Estimated GFR (Cockcroft-Gault) 46.1 BUN/Creatinine Ratio 19 (6-20) Glucose Level 95 mg/dL (70-99) Calcium Level 8.9 mg/dL (8.5-10.1) Total Bilirubin 0.7 mg/dL (0.2-1.0) Aspartate Amino Transferase (AST) 19 U/L (15-37) Alanine Aminotransferase (ALT) 13 U/L (16-63) L Alkaline Phosphatase 67 U/L (46-116) Total Protein 6.5 g/dL (6.4-8.2) Albumin 3.6 g/dL (3.4-5.0) Albumin/Globulin Ratio 1.2 (1.0-1.7) Glucose (Fingerstick) 93 mg/dL (70-99) Current Medications: Meds: Current Medications Acetaminophen (Tylenol) 650 mg PRN Q6HRS PRN PO PAIN / TEMP Last administered on 08/27/18at 23:58; Start 08/18/18 at 03:00 Multi-Ingredient Ointment (Analgesic [place]) 1 bernadette PRN QID PRN TP MUSCLE PAIN; Start 08/18/18 at 03:00 Al Hydroxide/Mg Hydroxide (Mylanta Plus Xs) 15 ml PRN AFTMEALHC PRN PO DYSPEPSIA; Start 08/18/18 at 03:00 Magnesium Hydroxide (Milk Of Magnesia) 2,400 mg PRN QHS PRN PO CONSTIPATION; Start 08/18/18 at 03:00 Olanzapine (ZyPREXA ZYDIS) 5 mg PRN Q2HR PRN PO AGITATION; Start 08/18/18 at 10 :30; Stop 08/18/18 at 10:33; Status DC Olanzapine (ZyPREXA ZYDIS) 2.5 mg PRN Q2HR PRN PO AGITATION Last administered on 08/28/18 01:24; Start 08/18/18 at 10:45 Cyanocobalamin (Vitamin B-12) 1,000 mcg DAILY PO Last administered on 08:03; Start 08/18/18 at 11:30 Epleronone (Inspra) 25 mg HS PO Last administered on 08/29/18 19:37; Start at 21:00 Aspirin (Children'S Aspirin) 81 mg DAILYWBKFT PO Last administered on 08:02; Start 08/18/18 at 11:30 Atorvastatin Calcium (Lipitor) 10 mg QHS PO Last administered on 08/29/18 19: 35; Start 08/18/18 at 21:00 Donepezil HCl (Aricept) 5 mg QHS PO Last administered on 08/28/18 20:24; Start 08/18/18 at 21:00; Stop 08/29/18 at 18:03; Status DC Fenofibrate (Tricor) 48 mg DAILY PO Last administered on 08/29/18 08:03; Start 08/18/18 at 11:30 Hydralazine HCl (Apresoline) 10 mg TIDWMEALS PO Last administered on 08/29/18 12:38; Start 08/18/18 at 12:00 Levothyroxine Sodium (Synthroid) 150 mcg DAILY06 PO Last administered on 05:02; Start 08/18/18 at 11:30; Stop 08/20/18 at 12:27; Status DC Magnesium Oxide (Magnesium Oxide) 400 mg DAILY PO Last administered on 08:01; Start 08/18/18 at 11:30 Multivitamins/ Calcium (Thera-M Plus) 1 tab DAILY PO Last administered on 08:01; Start 08/18/18 at 11:30 Pantoprazole Sodium (Protonix) 40 mg DAILYAC PO Last administered on 08/29/18 08:02; Start 08/18/18 at 11:30 Potassium Chloride (Klor-Con) 30 meq BIDWMEALS PO Last administered on 17:20; Start 08/18/18 at 17:00 Sertraline HCl (Zoloft) 25 mg DAILY PO Last administered on 08/22/18 07:34; Start 08/18/18 at 11:30; Stop 08/22/18 at 18:56; Status DC Torsemide (Demadex) 20 mg DAILY PO Last administered on 08/29/18 08:01; Start 08/18/18 at 11:30 Warfarin Sodium (Coumadin Per Physician) 1 each PRN DAILY PRN MC SEE COMMENTS; Start 08/18/18 at 12:00; Stop 08/22/18 at 18:30; Status DC Carvedilol (Coreg) 12.5 mg BIDWMEALS PO Last administered on 08/29/18 08:03; Start 08/18/18 at 17:00 Coenzyme Q10 (Coenzyme Q10) 300 mg DAILYWLUN PO Last administered on 08/29/18 12:39; Start 08/18/18 at 12:00 Dextrose 1,000 ml @ 80 mls/hr [id number] IV ; Start 08/19/18 at 11:00; Status Cancel Warfarin Sodium (Coumadin) 2 mg DAILY16 PO Last administered on 08/22/18 15:44 ; Start 08/19/18 at 17:00; Stop 08/22/18 at 19:09; Status DC Olanzapine (ZyPREXA ZYDIS) 5 mg 1X ONCE PO Last administered on 08/19/18 21: 36; Start 08/19/18 at 22:00; Stop 08/19/18 at 22:01; Status DC Lorazepam (Ativan) 0.5 mg PRN Q6HRS PRN PO ANXIETY / AGITATION Last administered on 08/29/18 19:37; Start 08/19/18 at 21:30 Levothyroxine Sodium (Synthroid) 175 mcg DAILY06 PO Last administered on 05:51; Start 08/21/18 at 06:00 Olanzapine (ZyPREXA) 5 mg HS PO Last administered on 08/26/18 20:03; Start at 21:00; Stop 08/26/18 at 21:52; Status DC Warfarin Sodium (Coumadin Per Pharmacy) 1 each PRN DAILY PRN MC SEE COMMENTS Last administered on 08/29/18 13:41; Start 08/22/18 at 18:30 Sertraline HCl (Zoloft) 50 mg DAILY PO Last administered on 08/27/18 07:46; Start 08/23/18 at 09:00; Stop 08/27/18 at 15:52; Status DC Warfarin Sodium (Coumadin) 3 mg 1X WARF ONCE PO Last administered on 16:36; Start 08/23/18 at 16:00; Stop 08/23/18 at 16:02; Status DC Warfarin Sodium (Coumadin) 3 mg 1X WARF ONCE PO Last administered on 16:12; Start 08/24/18 at 16:00; Stop 08/24/18 at 16:03; Status DC Warfarin Sodium (Coumadin) 2 mg 1X WARF ONCE PO Last administered on 16:43; Start 08/25/18 at 16:00; Stop 08/25/18 at 16:01; Status DC Olanzapine (ZyPREXA) 2.5 mg HS PO Last administered on 08/29/18 19:35; Start 08/27/18 at 21:00 Warfarin Sodium (Coumadin - No Dose Today) 1 each 1X WARF ONCE MC ; Start 08/27 at 16:00; Stop 08/27/18 at 16:02; Status DC Sertraline HCl (Zoloft) 75 mg DAILY PO Last administered on 08/29/18 08:04; Start 08/28/18 at 09:00 Warfarin Sodium (Coumadin) 3 mg 1X WARF ONCE PO Last administered on 16:13; Start 08/28/18 at 16:00; Stop 08/28/18 at 16:01; Status DC Mirtazapine (Remeron) 7.5 mg QHS PO Last administered on 08/29/18 19:35; Start 08/28/18 at 21:00 Warfarin Sodium (Coumadin) 3 mg 1X WARF ONCE PO Last administered on at 17:21; Start 08/29/18 at 16:00; Stop 08/29/18 at 16:01; Status DC Donepezil HCl (Aricept) 10 mg QHS PO Last administered on 08/29/18at 19:37; Start 08/29/18 at 21:00 Active Scripts Active Reported Demadex (Torsemide) 20 Mg Tablet 20 Mg PO BID92 Carvedilol 12.5 Mg Tablet 12.5 Mg PO BID Potassium Chloride 10 Meq Capsule.er 30 PO BIDWMEALS Warfarin Sodium 3 Mg Tablet 3 Mg PO 5XWEEK Warfarin Sodium 2 Mg Tablet 2 Mg PO QMTH Multivitamins (Multivitamin) 1 Each Tablet 1 Tab PO DAILY Atorvastatin Calcium 10 Mg Tablet 10 Mg PO QHS K-Tab ER (Potassium Chloride) 8 Meq Tablet.er Unknown Dose PO BIDWMEALS Omeprazole 20 Mg Tablet.dr 20 Mg PO DAILY Magnesium (Magnesium Oxide) 500 Mg Capsule 500 Mg PO DAILY Levothyroxine Sodium 150 Mcg Tablet 150 Mcg PO DAILYAC Hydralazine Hcl 10 Mg Tablet 10 Mg PO TIDWMEALS Fenofibrate (Fenofibrate Nanocrystallized) 48 Mg Tablet 48 Mg PO DAILY Eplerenone 25 Mg Tablet 25 Mg PO HS Aspirin 81 Mg Tab.chew 81 Mg PO DAILY Vitamin B-12 (Cyanocobalamin (Vitamin B-12)) 1,000 Mcg Tablet 1,000 Mcg PO DAILY Coq-10 (Ubidecarenone) 100 Mg Capsule 300 Mg PO DAILYWLUN Donepezil Hcl 5 Mg Tablet 5 Mg PO HS Zoloft (Sertraline Hcl) 25 Mg Tablet 25 Mg PO DAILY I have reviewed the current psychotropics carefully including drug interactions. Risk benefit ratio favors no change other than as noted in my dictated progress note. Diagnosis: Problems: (1) Anxiety disorder (2) Dementia, vascular, with depression (3) Dementia, vascular, with delusions (4) Impulse control disorder MARYJO LAYTON MD Aug 29, 2018 23:00
[2018-08-30] MEDS ORDERED: LORA-254 PO (02:02)
[2018-08-30] MEDS ORDERED: MAGN2400 PO (02:03)
[2018-08-30] MEDS ORDERED: PANT40TA3 PO (02:03)
[2018-08-30] MEDS ORDERED: OLAN5TAB5 PO ×2 (02:04→02:05)
[2018-08-30] MEDS ORDERED: MIRT15TA3 PO (02:06)
[2018-08-30] MEDS ORDERED: MAG355OR11 PO (02:07)
[2018-08-30] MEDS ORDERED: METH29OI TP (02:07)
[2018-08-30] MEDS ORDERED: ACET325T9 PO (02:08)
[2018-08-30] MEDS ORDERED: SERT50TA8 PO (02:09)
[2018-08-30] MEDS ORDERED: [UNRECOGNIZED DRUG - CODE] PO (02:09)
[2018-08-30] MEDS ORDERED: LEVO175T5 PO (02:09)
[2018-08-30] MEDS: LEVOTHYROXINE 175 MCG TABLET PO SCH (06:03)
[2018-08-30 06:07] VITALS: BP 121/74
[2018-08-30] MEDS: TORSEMIDE 20 MG TABLET. PO SCH (07:58)
[2018-08-30] MEDS: POTASSIUM CHLORIDE 10 MEQ TABLET.ER. PO SCH (07:58)
[2018-08-30] MEDS: FENOFIBRATE NANOCRYSTALLIZED 48 MG TABLET PO SCH (07:58)
[2018-08-30] MEDS: ASPIRIN 81 MG TAB.CHEW PO SCH (07:58)
[2018-08-30 07:59] VITALS: BP 121/74
[2018-08-30] MEDS: PANTOPRAZOLE 40 MG TABLET. PO SCH (07:59)
[2018-08-30] MEDS: MAGNESIUM OXIDE 400 MG TABLET PO SCH (07:59)
[2018-08-30] MEDS: SERTRALINE 50 MG TABLET. PO SCH (07:59)
[2018-08-30] MEDS: hydrALAZINE 10 MG TABLET PO SCH (07:59)
[2018-08-30] MEDS: CARVEDILOL 12.5 MG TABLET PO SCH (07:59)
[2018-08-30] MEDS: MULTIVITAMIN with MINERAL TABLET. PO SCH (08:00)
[2018-08-30] MEDS: CYANOCOBALAMIN (VITAMIN B-12) 1,000 MCG TABLET. PO SCH (08:00)
[2018-08-30] MEDS: LORazepam 0.5 MG TABLET PO PRN (09:46)
[2018-08-30] MEDS ORDERED: DONE10TA7 PO (11:04)
[2018-08-30] MEDS ORDERED: WARFARIN 3 MG TABLET. PO ONE (16:00)
--- NOTE | 2018-08-30 21:11 | PN ---
DATE: 08/29/2018 PSYCHIATRIC PROGRESS NOTE This is a late entry 08/29/2018 covers elements not covered in my initial note. SUBJECTIVE: I met with the patient in the evening. He has been somewhat anxious and slight unsteady gait. He was in a wheelchair during the day. Did come out to the dining room for a breakfast. Compliant with his medications. REVIEW OF SYSTEMS: No CV, , pulmonary, eye system symptoms on review. MENTAL STATUS EXAM: Oriented to himself at times situation. Speech moderate latency, often responses monosyllabic. Abstraction fair, computation impaired, language function intact, attention span short. Mood and affect somewhat withdrawn, anxious. LABORATORY DATA: Reviewed. IMPRESSION: Unchanged from my initial note. PLAN: Increase Aricept to 10 mg a day. Rest unchanged. Transition to [facility] 08/30/2018. MAN Roma LAYTON MD DR: SONDRA/enmanuel JOB#: [id number] / [id number]
--- NOTE | 2018-08-30 23:13 | PDOC ---
Exam Note: Mikel Note: Please also refer to the separate dictated note~for this date of service dictated separately.~Patient seen individually. Discussed the patient with Nursing staff reviewed the chart.~Reviewed interim history and current functioning. Reviewed vital signs,~Labs/ Radiology~and current medications noted below. Continue current treatment with the changes noted in the dictated addendum note Assessment: Vital Signs: Vital Signs Date Time Temp Pulse Resp B/P (MAP) Pulse Ox O2 Delivery O2 Flow Rate FiO2 08/30/18 07:59 59 121/74 08/30/18 06:07 97.3 18 95 08/29/18 16:21 Room Air I&O Intake and Output 08/30/18 06:59 Intake Total 840 ml Balance 840 ml Intake Oral 840 ml # Bowel Movements 1 Labs: Laboratory Tests Test 08/30/18 06:38 08/30/18 07:22 Prothrombin Time 25.8 SEC (9.4-11.4) H Prothrombin Time INR 2.7 (0.9-1.1) H Glucose (Fingerstick) 86 mg/dL (70-99) Current Medications: Meds: Current Medications Acetaminophen (Tylenol) 650 mg PRN Q6HRS PRN PO PAIN / TEMP Last administered on 08/27/18at 23:58; Start 08/18/18 at 03:00; Stop 08/30/18 at 12:14; Status DC Multi-Ingredient Ointment (Analgesic Davis) 1 saravanan PRN QID PRN TP MUSCLE PAIN; Start 08/18/18 at 03:00; Stop 08/30/18 at 12:14; Status DC Al Hydroxide/Mg Hydroxide (Mylanta Plus Xs) 15 ml PRN AFTMEALHC PRN PO DYSPEPSIA; Start 08/18/18 at 03:00; Stop 08/30/18 at 12:14; Status DC Magnesium Hydroxide (Milk Of Magnesia) 2,400 mg PRN QHS PRN PO CONSTIPATION; Start 08/18/18 at 03:00; Stop 08/30/18 at 12:14; Status DC Olanzapine (ZyPREXA ZYDIS) 5 mg PRN Q2HR PRN PO AGITATION; Start 08/18/18 at 10 :30; Stop 08/18/18 at 10:33; Status DC Olanzapine (ZyPREXA ZYDIS) 2.5 mg PRN Q2HR PRN PO AGITATION Last administered on 08/28/18 01:24; Start 08/18/18 at 10:45; Stop 08/30/18 at 12:14; Status DC Cyanocobalamin (Vitamin B-12) 1,000 mcg DAILY PO Last administered on at 08:00; Start 08/18/18 at 11:30; Stop 08/30/18 at 12:14; Status DC Epleronone (Inspra) 25 mg HS PO Last administered on 08/29/18at 19:37; Start at 21:00; Stop 08/30/18 at 12:14; Status DC Aspirin (Children'S Aspirin) 81 mg DAILYWBKFT PO Last administered on 07:58; Start 08/18/18 at 11:30; Stop 08/30/18 at 12:14; Status DC Atorvastatin Calcium (Lipitor) 10 mg QHS PO Last administered on 08/29/18 19: 35; Start 08/18/18 at 21:00; Stop 08/30/18 at 12:14; Status DC Donepezil HCl (Aricept) 5 mg QHS PO Last administered on 08/28/18 20:24; Start 08/18/18 at 21:00; Stop 08/29/18 at 18:03; Status DC Fenofibrate (Tricor) 48 mg DAILY PO Last administered on 08/30/18 07:58; Start 08/18/18 at 11:30; Stop 08/30/18 at 12:14; Status DC Hydralazine HCl (Apresoline) 10 mg TIDWMEALS PO Last administered on 08/30/18at 07:59; Start 08/18/18 at 12:00; Stop 08/30/18 at 12:14; Status DC Levothyroxine Sodium (Synthroid) 150 mcg DAILY06 PO Last administered on at 05:02; Start 08/18/18 at 11:30; Stop 08/20/18 at 12:27; Status DC Magnesium Oxide (Magnesium Oxide) 400 mg DAILY PO Last administered on 07:59; Start 08/18/18 at 11:30; Stop 08/30/18 at 12:14; Status DC Multivitamins/ Calcium (Thera-M Plus) 1 tab DAILY PO Last administered on at 08:00; Start 08/18/18 at 11:30; Stop 08/30/18 at 12:14; Status DC Pantoprazole Sodium (Protonix) 40 mg DAILYAC PO Last administered on 08/30/18 07:59; Start 08/18/18 at 11:30; Stop 08/30/18 at 12:14; Status DC Potassium Chloride (Klor-Con) 30 meq BIDWMEALS PO Last administered on 07:58; Start 08/18/18 at 17:00; Stop 08/30/18 at 12:14; Status DC Sertraline HCl (Zoloft) 25 mg DAILY PO Last administered on 08/22/18 07:34; Start 08/18/18 at 11:30; Stop 08/22/18 at 18:56; Status DC Torsemide (Demadex) 20 mg DAILY PO Last administered on 08/30/18 07:58; Start 08/18/18 at 11:30; Stop 08/30/18 at 12:14; Status DC Warfarin Sodium (Coumadin Per Physician) 1 each PRN DAILY PRN MC SEE COMMENTS; Start 08/18/18 at 12:00; Stop 08/22/18 at 18:30; Status DC Carvedilol (Coreg) 12.5 mg BIDWMEALS PO Last administered on 08/30/18at 07:59; Start 08/18/18 at 17:00; Stop 08/30/18 at 12:14; Status DC Coenzyme Q10 (Coenzyme Q10) 300 mg DAILYWLUN PO Last administered on 08/29/18at 12:39; Start 08/18/18 at 12:00; Stop 08/30/18 at 12:14; Status DC Dextrose 1,000 ml @ 80 mls/hr [id number] IV ; Start 08/19/18 at 11:00; Status Cancel Warfarin Sodium (Coumadin) 2 mg DAILY16 PO Last administered on 08/22/18at 15:44 ; Start 08/19/18 at 17:00; Stop 08/22/18 at 19:09; Status DC Olanzapine (ZyPREXA ZYDIS) 5 mg 1X ONCE PO Last administered on 08/19/18 21: 36; Start 08/19/18 at 22:00; Stop 08/19/18 at 22:01; Status DC Lorazepam (Ativan) 0.5 mg PRN Q6HRS PRN PO ANXIETY / AGITATION Last administered on 08/30/18 09:46; Start 08/19/18 at 21:30; Stop 08/30/18 at 12:14 ; Status DC Levothyroxine Sodium (Synthroid) 175 mcg DAILY06 PO Last administered on 06:03; Start 08/21/18 at 06:00; Stop 08/30/18 at 12:14; Status DC Olanzapine (ZyPREXA) 5 mg HS PO Last administered on 08/26/18 20:03; Start at 21:00; Stop 08/26/18 at 21:52; Status DC Warfarin Sodium (Coumadin Per Pharmacy) 1 each PRN DAILY PRN MC SEE COMMENTS Last administered on 08/30/18 08:34; Start 08/22/18 at 18:30; Stop 08/30/18 at 12:14; Status DC Sertraline HCl (Zoloft) 50 mg DAILY PO Last administered on 08/27/18 07:46; Start 08/23/18 at 09:00; Stop 08/27/18 at 15:52; Status DC Warfarin Sodium (Coumadin) 3 mg 1X WARF ONCE PO Last administered on 16:36; Start 08/23/18 at 16:00; Stop 08/23/18 at 16:02; Status DC Warfarin Sodium (Coumadin) 3 mg 1X WARF ONCE PO Last administered on 16:12; Start 08/24/18 at 16:00; Stop 08/24/18 at 16:03; Status DC Warfarin Sodium (Coumadin) 2 mg 1X WARF ONCE PO Last administered on 16:43; Start 08/25/18 at 16:00; Stop 08/25/18 at 16:01; Status DC Olanzapine (ZyPREXA) 2.5 mg HS PO Last administered on 08/29/18 19:35; Start 08/27/18 at 21:00; Stop 08/30/18 at 12:14; Status DC Warfarin Sodium (Coumadin - No Dose Today) 1 each 1X WARF ONCE MC ; Start 08/27 at 16:00; Stop 08/27/18 at 16:02; Status DC Sertraline HCl (Zoloft) 75 mg DAILY PO Last administered on 08/30/18at 07:59; Start 08/28/18 at 09:00; Stop 08/30/18 at 12:14; Status DC Warfarin Sodium (Coumadin) 3 mg 1X WARF ONCE PO Last administered on at 16:13; Start 08/28/18 at 16:00; Stop 08/28/18 at 16:01; Status DC Mirtazapine (Remeron) 7.5 mg QHS PO Last administered on 08/29/18at 19:35; Start 08/28/18 at 21:00; Stop 08/30/18 at 12:14; Status DC Warfarin Sodium (Coumadin) 3 mg 1X WARF ONCE PO Last administered on at 17:21; Start 08/29/18 at 16:00; Stop 08/29/18 at 16:01; Status DC Donepezil HCl (Aricept) 10 mg QHS PO Last administered on 08/29/18at 19:37; Start 08/29/18 at 21:00; Stop 08/30/18 at 12:14; Status DC Warfarin Sodium (Coumadin) 3 mg 1X WARF ONCE PO ; Start 08/30/18 at 16:00; Stop 08/30/18 at 16:00; Status DC Active Scripts Active Reported Donepezil Hcl 10 Mg Tablet 10 Mg PO HS Magnesium Oxide 400 Mg Tablet 400 Mg PO DAILY Levothyroxine Sodium 175 Mcg Tablet 175 Mcg PO DAILYAC Sertraline Hcl 50 Mg Tablet 75 Mg PO DAILY Tylenol (Acetaminophen) 325 Mg Tablet 650 Mg PO PRN Q6HRS PRN Maalox Advanced Suspension (Mag Hydrox/Aluminum Hyd/Simeth) 355 Ml Oral.susp 15 Ml PO PRN AFTMEALHC PRN Analgesic Davis (Methyl Salicylate/Menthol) 28 Gm Oint...g. 1 Saravanan TP PRN QID PRN Mirtazapine 15 Mg Tablet 7.5 Mg PO QHS Zyprexa Zydis (Olanzapine) 5 Mg Tab.rapdis 2.5 Mg PO PRN Q2HR PRN Zyprexa Zydis (Olanzapine) 5 Mg Tab.rapdis 2.5 Mg PO QHS Protonix (Pantoprazole Sodium) 40 Mg Tablet.dr 40 Mg PO DAILYAC Milk Of Magnesia (Magnesium Hydroxide) 2,400 Mg/10 Ml Oral.susp 2,400 Mg PO PRN QHS PRN Ativan (Lorazepam) 1 Mg Tablet 0.5 Mg PO PRN Q6HRS PRN Demadex (Torsemide) 20 Mg Tablet 20 Mg PO DAILY Carvedilol 12.5 Mg Tablet 12.5 Mg PO BID Potassium Chloride 10 Meq Capsule.er 30 PO BIDWMEALS Warfarin Sodium 3 Mg Tablet 3 Mg PO 5XWEEK Warfarin Sodium 2 Mg Tablet 2 Mg PO QMTH Multivitamins (Multivitamin) 1 Each Tablet 1 Tab PO DAILY Atorvastatin Calcium 10 Mg Tablet 10 Mg PO QHS Hydralazine Hcl 10 Mg Tablet 10 Mg PO TIDWMEALS Fenofibrate (Fenofibrate Nanocrystallized) 48 Mg Tablet 48 Mg PO DAILY Eplerenone 25 Mg Tablet 25 Mg PO HS Aspirin 81 Mg Tab.chew 81 Mg PO DAILY Vitamin B-12 (Cyanocobalamin (Vitamin B-12)) 1,000 Mcg Tablet 1,000 Mcg PO DAILY Coq-10 (Ubidecarenone) 100 Mg Capsule 300 Mg PO DAILYWLUN I have reviewed the current psychotropics carefully including drug interactions. Risk benefit ratio favors no change other than as noted in my dictated progress note. Diagnosis: Problems: (1) Anxiety disorder (2) Dementia, vascular, with depression (3) Dementia, vascular, with delusions (4) Impulse control disorder MARYJO LAYTON MD Aug 30, 2018 23:13
--- NOTE | 2018-09-01 13:51 | DS ---
DATE OF DISCHARGE: 08/30/2018 DISCHARGE SUMMARY/PSYCHIATRIC PROGRESS NOTE This late entry of 08/30/2018, covers elements not covered in my initial note. REASON FOR ADMISSION: Please refer to the admission history for details. 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 He was yelling, having marked insomnia, worsening confusion, paranoia, agitation. He has failed outpatient psychiatric interventions resulting in this referral. SIGNIFICANT FINDINGS AND CLINICAL COURSE: Following admission, the patient was seen daily individually by myself from a psychiatric standpoint, medical followup with Dr. Alanis. The patient was anxious, restless, somewhat depressed, constantly talking about the fact that he was dying. He needed frequent reassurance by staff and his family. Adjustments were made in his psychotropics and he seemed to respond to a combination of Aricept 5 mg a day, Zoloft 75 mg a day, Zyprexa 2.5 mg at bedtime for his paranoia plus 2.5 mg p.r.n. p.o., and Ativan p.r.n., Remeron 7.5 mg p.o. h.s., Aricept was increased to 10 mg a day prior to discharge. REVIEW OF SYSTEMS: Prior to discharge on 08/30/2018, ambulation impaired with assistance. No CV, , pulmonary, eye, ENT system symptoms on review. MENTAL STATUS EXAM: The patient is oriented to himself. Speech has some latency, coherent, often responses monosyllabic. Abstraction fair, computation impaired, language function intact. Mood and affect, still depressed and anxious. No active suicidal or homicidal ideation prior to discharge. LABORATORY DATA: Reviewed. 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 Rest unchanged from admission. DISCHARGE MEDICATIONS: Please refer to the MRAD. DISCHARGE INSTRUCTIONS: Outpatient psychiatric and medical followup with the half-way. Time for discharge day management greater than 30 minutes. MAN Roma LAYTON MD DR: SONDRA/enmanuel JOB#: [id number] / [id number]
== END 2018-08-30 11:20 | DRG 885 ==
LOC: GEROPSY 02:51
PROVIDERS: ADMIT Psychiatry & Neurology Psychiatry; ATTEND Psychiatry & Neurology Psychiatry
DX: F33.9 Major depressive disorder, recurrent, unspecified (principal); F01.51 Vascular dementia, unspecified severity, with behavioral disturbance; F63.9 Impulse disorder, unspecified; F39 Unspecified mood [affective] disorder; I48.91 Unspecified atrial fibrillation; E03.9 Hypothyroidism, unspecified; E78.5 Hyperlipidemia, unspecified; F41.9 Anxiety disorder, unspecified; G47.00 Insomnia, unspecified; H47.619 Cortical blindness, unspecified side of brain; R41.3 Other amnesia; I25.10 Atherosclerotic heart disease of native coronary artery without angina pectoris; K21.9 Gastro-esophageal reflux disease without esophagitis; R79.1 Abnormal coagulation profile; I50.9 Heart failure, unspecified; Z79.82 Long term (current) use of aspirin; Z79.890 Hormone replacement therapy; Z85.850 Personal history of malignant neoplasm of thyroid; Z86.73 Personal history of transient ischemic attack (TIA), and cerebral infarction without residual deficits; Z92.3 Personal history of irradiation; Z95.2 Presence of prosthetic heart valve; Z98.2 Presence of cerebrospinal fluid drainage device; Z91.81 History of falling; Z79.899 Other long term (current) drug therapy; Z87.828 Personal history of other (healed) physical injury and trauma; Z88.8 Allergy status to other drugs, medicaments and biological substances
CPT/HCPCS: 36415; 70450; 72040; 72072; 80048; 80053; 80061; 81001; 82306; 82947; 83036; 83540; 83550; 83735; 84436; 84443; 84480; 85007; 85025; 85610; 86592; 93005